=== PATIENT | female | born 1965 | race Caucasian/White ===

== ENCOUNTER 2023-12-09 14:03 | Emergency (ER) | payer OTHER, SELFPAY ==
[2023-12-09 14:20] VITALS: BP 175/87; PULSE 75; RESP 16; TEMP 36.6; O2SAT 97; BMI 35.0
--- NOTE | 2023-12-09 14:32 | ECG_ITS ---
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 Measurements Intervals [place] Rate: 77 P: 55 CO: 155 QRS: 68 QRSD: 68 T: 43 QT: 382 QTc: 433 Interpretive Statements SINUS RHYTHM No previous ECG available for comparison Electronically Signed On 12-09-2023 16:34:44 CDT by Carmine Estevez M.D. [email or web address]
--- NOTE | 2023-12-09 14:34 | CTR_ITS ---
PROCEDURE INFORMATION: Exam: CT Head Without Contrast Exam date and time: 12/09/2023 2:40 PM Age: 58 years old Clinical indication: Stroke-like symptoms; Headache; Left upper extremity numbness/paresthesia; Additional info: Symptoms of acute stroke TECHNIQUE: Imaging protocol: Computed tomography of the head without contrast. Radiation optimization: All CT scans at this facility use at least one of these dose optimization techniques: automated exposure control; mA and/or kV adjustment per patient size (includes targeted exams where dose is matched to clinical indication); or iterative reconstruction. Other technique: STROKE PROTOCOL was implemented. COMPARISON: No relevant prior studies available. RADIATION DOSE METRICS: Total DLP (mGy-cm): 1016 FINDINGS: Brain: There is a large poorly defined area of irregular low density involving the right parietal lobe region. A similar smaller area of low density involves the right frontal lobe. Both areas demonstrate abnormalities that involves the cortex as well as the subcortical white matter. A 1.5 cm old infarct involves the right basal ganglia anteriorly. 1 cm diameter old infarct involves the right internal capsule. No evidence of hemorrhage. Cerebral ventricles: No ventriculomegaly. No midline shift. Paranasal sinuses: Visualized sinuses are unremarkable. No fluid levels. Mastoid air cells: Visualized mastoid air cells are well aerated. Bones: Unremarkable. No acute fracture. Soft tissues: Unremarkable. CT/CT head thrombolytic [id number] IMPRESSION: 1. Poorly defined areas of low density in the right frontal lobe and parietal lobe suspicious for subacute infarct 2. Old lacunar infarcts involving the right basal ganglia and internal capsule ASSESSMENT: ASPECTS ([place] Stroke Program Early CT Score) is 6.
--- NOTE | 2023-12-09 14:42 | ED_ITS ---
HPI - Neuro Symptoms/Deficit 2 General: Chief Complaint: Neuro Symptoms/Deficit Stated Complaint: left side hand numb, hard time walking w/l side Time Seen by Provider: 12/09/23 14:33 History of Present Illness: 58-year-old female presents emergency ro om planing left-sided weakness and numbness that has already resolved. She had an episode of a headache earlier today and radiating to the right eye and then had left hand numbness and tingling felt little off balance all resolved by the time she arrived here. She is ambulating normally stroke alert was called. Initial NIH was 0 she denies urinary symptoms. All of her numbness and tingling had resolved. Associated symptoms: Deny chest pain Related Data Home Medications Medication Instructions Recorded Confirmed acetaminophen 325 mg tablet 650 mg PO QID PRN Pain 12/09/23 12/09/23 (Tylenol) [id number] 8 mg-folic 400 1 tab PO DAILY 12/09/23 12/09/23 mcg-K 50 mcg-lutein 300 mcg tablet (Multivitamin Women 50 Plus) Previous Rx's Medication Instructions Recorded aspirin 81 mg tablet,delayed 81 mg PO DAILY #30 tabs 12/09/23 release atorvastatin 40 mg tablet 40 mg PO DAILY #30 tabs 12/09/23 clopidogrel 75 mg tablet 75 mg PO DAILY #30 tabs 12/09/23 Allergies Allergy/AdvReac Type Severity Reaction Status Date / Time No Known Allergies Allergy Verified 12/09/23 14:25 Review of Systems 2 Const: Denies: fever(s) or chills Card: Denies: chest pain Resp: Denies: dyspnea GI: Denies: abdominal pain : Denies: dysuria, urinary frequency or urinary urgency Musc: Denies: neck pain or back pain Skin/Breast: Denies: rash NIH stroke score 2 NIHSS: Level Of Consciousness - 1a: 0 Level Of Consciousness Questions - 1b: Both Correct Level Of Consciousness Commands - 1c: Both Correct Best Gaze - 2: Normal Visual Jose - 3: No Visual Loss Facial Palsy - 4: N ormal Motor Arm Right - 5: No Drift Motor Arm Left - 5: No Drift Motor Leg Right - 6: No Drift Motor Leg Left - 6: No Drift Limb Ataxia - 7: A bsent Sensory - 8: Normal Best Language - 9: No Aphasia Dysarthia - 10: Normal Extinction And Inattention - 11: 0 Score: Total Score: 0 Physical Exam 2 Const: COMMON NORMALS: no acute distress GENERAL APPEARANCE: cooperative and comfortable ORIENTATION/CONSCIOUSNESS: Yes awake, Yes oriented to person, Yes oriented to place and Yes oriented to time HENMT: COMMON NORMALS: normocephalic, atraumatic and hearing grossly normal bilaterally HEAD & SCALP: normocephalic and atraumatic Resp: COMMON NORMALS: normal respiratory effort, No retractions, No use of accessory muscles and clear to auscultation bilaterally AUSCULTATION: clear to auscultation bilaterally Cardio: COMMON NORMALS: regular rate, regular rhythm and No murmurs present (Cardio) RATE: regular rate RHYTHM: regular rhythm GI: COMMON NORMALS: Soft to palpation and No hepatosplenomegaly present A USCULTATION: Yes normoactive bowel sounds PALPATION: Yes Soft to palpation, No Tenderness to palpation present (GI), No Guarding due to palpation present (GI) and Yes No hepatosplenomegaly present Extremity: COMMON NORMALS: normal to inspection, capillary refill normal, no clubbing, cyanosis or edema, no calf tenderness and no pedal edema Neuro: SENSORIUM/ORIENTATION: Yes oriented to person, Yes oriented to place and Yes oriented to time Skin: COMMON NORMALS: no rashes or lesions noted GENERAL SKIN EXAM: no rashes or lesions noted Course 2 Vital Signs: Vital signs: Vital Signs Temperature 97.9 F 12/09/23 14:20 Pulse Rate 74 12/09/23 16:47 Respiratory Rate 16 12/09/23 15:30 Blood Pressure 162/92 12/09/23 16:47 Pulse Oximetry 96 12/09/23 16:47 Oxygen Delivery Me thod Room Air 12/09/23 16:00 MDM - Neuro Symptoms/Deficit Medical Decision Making NIH is 0 repeat after workup was also negative. Ambulated in room without difficulty. Will discharge patient home Plavix aspirin and clopidogrel. Blood pressure is mildly elevated no intervention at this time recommend she follow-up with her primary care doctor to reevaluate. Return if any further problems. With reviewing chart to sign off and noted that on his CT report the second line of the first impression is listed as a possible subacute lesion. I had noted the old areas outlined in CT but had not noted the comment in the CT report about the possible subacute lesion. Reviewed with Dr. Vaz we will contact the patient to have her return to the emergency room for admission for further evaluation. Medical Records I reviewed the patient's medical records. Lab Data I reviewed the patient's lab results. 12/09/23 14:40 12/09/23 14:[address] 12/09/23 14:34 IMPRESSION: 1. Poorly defined areas of low density in the right frontal lobe and parietal lobe suspicious for subacute infarct 2. Old lacunar infarcts involving the right basal ganglia and internal capsule ASSESSMENT: ASPECTS ([place] Stroke Program Early CT Score) is 6. Laboratory Results WBC 11.81 10^3/uL (3.29-11.43) H 12/09/23 14:40 RBC 6.54 10^6/uL (3.85-5.65) H 12/09/23 14:40 Hgb 17.80 g/dL (11.27-16.99) H 12/09/23 14:40 Hct 55.9 % (36-47) H 12/09/23 14:40 MCV 85.5 fl (85-98) 12/09/23 14:40 MCH 27.2 pg (27-33) 12/09/23 14:40 MCHC 31.8 g/dL (30-55) 12/09/23 14:40 RDW 15.6 % (12.1-15.1) H 12/09/23 14:40 Plt Count 828 10^3/cmm (157-399) H 12/09/23 14:40 MPV 9.3 fL (7.4-10.4) 12/09/23 14:40 Neut % (Auto) 77.5 % 12/09/23 14:40 Lymph % (Auto) 11.3 % 12/09/23 14:40 Chambers % (Auto) 6.8 % 12/09/23 14:40 Eos % (Auto) 2.5 % 12/09/23 14:40 Baso % (Auto) 1.4 % 12/09/23 14:40 Neut # (Auto) 9.17 10^3/uL (1.8-7.7) H 12/09/23 14:40 Lymph # (Auto) 1.3 10^3/uL (0.8-4.8) 12/09/23 14:40 Chambers # (Auto) 0.8 10^3/uL (0.2-0.9) 12/09/23 14:40 Eos # (Auto) 0.3 10^3/uL (0.0-0.8) 12/09/23 14:40 Baso # (Auto) 0.2 10^3/uL (0.0-0.1) H 12/09/23 14:40 Nucleated RBC % (auto) 0 % 12/09/23 14:40 Nucleated RBCs # 0.0 /100WBC 12/09/23 14:40 PT 13.70 SECONDS (12.1-14.9) 12/09/23 14:40 INR 1.01 (0.8-1.2) 12/09/23 14:40 APTT 33.4 SECONDS (23.9-36.7) 12/09/23 14:40 Sodium 143 mmol/L (136-145) 12/09/23 14:40 Potassium 4.5 mmol/L (3.5-5.1) 12/09/23 14:40 Chloride 106 mmol/L (98-107) 12/09/23 14:40 Carbon Dioxide 27 mmol/L (22-29) 12/09/23 14:40 Anion Gap 14.5 (5-19) 12/09/23 14:40 BUN 17 mg/dL (6-20) 12/09/23 14:40 Creatinine 0.9 mg/dL (0.5-0.9) 12/09/23 14:40 GFR Calculation 64.5 mL/min (90-130) L 12/09/23 14:40 Glucose 91 mg/dL (65-115) 12/09/23 14:40 POC Glucose 88 mg/dL (70-110) 12/09/23 14:39 Calculated Osmolality 297 mOsm/kg (285-295) H 12/09/23 14:40 Calcium 9.4 mg/dL (8.5-10.5) 12/09/23 14:40 Total Bilirubin 0.4 mg/dL (0.15-1.2) 12/09/23 14:40 AST 32 U/L (0-32) 12/09/23 14:40 ALT 37 U/L (0-33) H 12/09/23 14:40 Alkaline Phosphatase 115 U/L (35-105) H 12/09/23 14:40 Total Protein 6.9 g/dL (6.6-8.7) 12/09/23 14:40 Albumin 4.0 g/dL (3.5-5.2) 12/09/23 14:40 Globulin 2.9 g/dL (1.3-4.6) 12/09/23 14:40 Urine Color Yellow (Yellow) 12/09/23 15:40 Urine Appearance Clear (CLEAR) 12/09/23 15:40 Urine pH 5.5 (5-7) 12/09/23 15:40 Ur Specific [place] 1.008 (1.005-1.030) 12/09/23 15:40 Urine Protein Negative (Negative) 12/09/23 15:40 Urine Glucose (UA) Negative (Normal) 12/09/23 15:40 Urine Ketones Negative (Negative) 12/09/23 15:40 Urine Blood Negative (Negative) 12/09/23 15:40 Urine Nitrate Negative (Negative) 12/09/23 15:40 Urine Bilirubin Negative (Negative) 12/09/23 15:40 Urine Urobilinogen 0.2 mg/dL (Negative) 12/09/23 15:40 Ur Leukocyte Esterase Negative (Negative) 12/09/23 15:40 Urine RBC 0-2 /hpf (0-2) 12/09/23 15:40 Urine WBC 0-5 /hpf (0-5) 12/09/23 15:40 Ur Squamous Epith Cells 0-5 /hpf (0-5) 12/09/23 15:40 Amorphous Sediment Not Reportable 12/09/23 15:40 Urine Bacteria None seen /hpf (NONE) 12/09/23 15:40 Hyaline Casts 0-4 /lpf H 12/09/23 15:40 Urine Opiates Screen Negative ng/mL (Negative) 12/09/23 15:40 Ur Barbiturates Screen Negative ng/mL (Negative) 12/09/23 15:40 Ur Phencyclidine Scrn Negative ng/mL (Negative) 12/09/23 15:40 Ur Amphetamines Screen Negative ng/mL (Negative) 12/09/23 15:40 U Benzodiazepines Scrn Negative ng/mL (Negative) 12/09/23 15:40 Urine Cocaine Screen Negative ng/mL (Negative) 12/09/23 15:40 U Marijuana (THC) Screen Negative ng/mL (Negative) 12/09/23 15:40 All radiology interpretation(s) finalized by discharge Discharge Plan Discharge Patient Disposition: Home Clinical Impression: Transient cerebral ischemia Condition: Stable Prescriptions: New aspirin 81 mg tablet,delayed release (DR/EC) 81 mg PO DAILY Qty: 30 0RF clopidogrel 75 mg tablet 75 mg PO DAILY Qty: 30 0RF atorvastatin 40 mg tablet 40 mg PO DAILY Qty: 30 0RF No Action Tylenol 325 mg Tablet 650 mg PO QID PRN (Reason: Pain) Multivitamin Women 50 Plus 8 mg iron-400 mcg-50 mcg Tablet 1 tab PO DAILY Discharge Orders: Discharge ED (Routine); Ordered 12/09/23 Ordered By: Antony Mandel Discharge Diet: Usual diet Discharge Activity: Increase activity as tolerated Patient Instructions: Opioid Safety, Pain Management, TIA Activity Restrictions/Additional Instructions: Thank you for choosing [facility] for your healthcare needs today. It is very important that you follow up as instructed or that you return to the Emergency Department should you have concerns or if your condition changes or worsens in any way. You were seen today for a TIA. Your symptoms had resolved her stroke score was 0. CT of your head was negative. Recommend that you start aspirin 81 mg daily and Plavix 75 mg daily as well as atorvastatin 40 mg daily. Case management make arrangements for follow-up with neurology as well as outpatient testing to further evaluate. Return if you have further problems. Coding Level of Care Code ED [employer] Attendant for Zoe Hudson
[2023-12-09 14:47] LABS: Basophils # 0.2 10^3/uL (0.0-0.1); Basophils % 1.4 %; Eosinophils # 0.3 10^3/uL (0.0-0.8); Eosinophils % 2.5 %; Hematocrit 55.9 % (36-47); Lymphocytes # 1.3 10^3/uL (0.8-4.8); Lymphocytes % 11.3 %; Mean Corpuscular HGB Conc 31.8 g/dL (30-55); Mean Corpuscular Hemoglobin 27.2 pg (27-33); Mean Corpuscular Volume 85.5 fl (85-98); Mean Platelet Volume 9.3 fL (7.4-10.4); Monocytes # 0.8 10^3/uL (0.2-0.9); Monocytes % 6.8 %; Neutrophils # 9.17 10^3/uL (1.8-7.7); Neutrophils % 77.5 %; Nucleated Red Blood Cells % 0 %; Platelet Count 828 10^3/cmm (157-399); Red Blood Count 6.54 10^6/uL (3.85-5.65); Red Cell Distribution Width 15.6 % (12.1-15.1); White Blood Count 11.81 10^3/uL (3.29-11.43)
[2023-12-09 15:07] LABS: INR 1.01 (0.8-1.2)
[2023-12-09 15:08] LABS: Partial Thromboplastin Time 33.4 SECONDS (23.9-36.7)
[2023-12-09 15:12] LABS: Alanine Aminotransferase 37 U/L (0-33); Alkaline Phosphatase 115 U/L (35-105); Anion Gap 14.5 (5-19); Aspartate Amino Transferase 32 U/L (0-32); Blood Urea Nitrogen 17 mg/dL (6-20); Calcium 9.4 mg/dL (8.5-10.5); Carbon Dioxide 27 mmol/L (22-29); Chloride 106 mmol/L (98-107); Creatinine Clr Calc Pharmacy 81.6028; Globulin 2.9 g/dL (1.3-4.6); Glomerular Filtration Rate 64.5 mL/min (90-130); Glucose 91 mg/dL (65-115); Osmolality Calculated 297 mOsm/kg (285-295); Potassium 4.5 mmol/L (3.5-5.1); Sodium 143 mmol/L (136-145); Total Bilirubin 0.4 mg/dL (0.15-1.2); Total Protein 6.9 g/dL (6.6-8.7)
[2023-12-09 15:24] VITALS: BP 143/95; PULSE 74; RESP 16; O2SAT 93
[2023-12-09 15:30] VITALS: BP 166/97; PULSE 72; RESP 16; O2SAT 96
[2023-12-09 16:00] VITALS: BP 170/90; PULSE 74; O2SAT 94
[2023-12-09 16:07] LABS: Bilirubin Urine Negative (Negative); Blood Urine Negative (Negative); Glucose Urine UA Negative (Normal); Ketones Urine Negative (Negative); Leukocyte Esterase Urine Negative (Negative); Nitrate Urine Negative (Negative); Protein Urine Negative (Negative); Specific Gravity, Urine 1.008 (1.005-1.030); Urine Appearance Clear (CLEAR); Urine Color Yellow (Yellow); Urobilinogen Urine 0.2 mg/dL (Negative); pH Urine 5.5 (5-7)
[2023-12-09 16:13] LABS: Add Urine Microscopic? YES; Bacteria Urine None Seen /hpf; Hyaline Casts Urine 0-4 /lpf; RBC Urine 0-2 /hpf (0-2); Squamous Epithelial Cell Urine 0-5 /hpf (0-5); WBC Urine 0-5 /hpf (0-5)
[2023-12-09 16:15] LABS: Amphetamines Screen Urine Negative (Negative); Barbiturates Screen Urine Negative (Negative); Benzodiazepines Screen Urine Negative (Negative); Cocaine Screen Urine Negative (Negative); Opiate Screen Urine Negative (Negative); PCP Screen Urine Negative (Negative); THC Screen Urine Negative (Negative)
[2023-12-09 16:47] VITALS: BP 162/92; PULSE 74; O2SAT 96
[2023-12-09 17:23] LABS: Glucose Point of Care 88 mg/dL (70-110)
== END 2023-12-09 16:48 | disposition home or self-care (01) ==
PROVIDERS: Emergency Provider Family Medicine
DX: G45.9 Transient cerebral ischemic attack, unspecified (principal)
CPT/HCPCS: 36416; 70450; 80053; 80306; 81001; 82962; 85025; 85610; 85730; 93005; 99284

== ENCOUNTER 2023-12-09 17:48 | Inpatient (IN) | payer OTHER, SELFPAY ==
[2023-12-09 17:56] VITALS: BP 137/72; PULSE 102; RESP 16; O2SAT 99; BMI 34.8
--- NOTE | 2023-12-09 18:00 | PC.NURSE ---
spoke with duc elias regarding calling code stroke for patient. she instructed since dr swan called patient back to put her in room 10 and then staff would go from there. no code stroke called at this time.
--- NOTE | 2023-12-09 18:10 | CTR_ITS ---
PROCEDURE INFORMATION: Exam: CTA Head With Contrast, Arteriography Exam date and time: 12/09/2023 6:48 PM Age: 58 years old Clinical indication: Other: Subacute CVA TECHNIQUE: Imaging protocol: Computed tomographic angiography of the head with contrast. Exam focused on the arteries. 3D rendering (Not supervised by radiologist): MIP and/or 3D reconstructed images were created by the technologist. Radiation optimization: All CT scans at this facility use at least one of these dose optimization techniques: automated exposure control; mA and/or kV adjustment per patient size (includes targeted exams where dose is matched to clinical indication); or iterative reconstruction. Contrast material: OMNI 350; Contrast volume: 75 ml; Contrast route: INTRAVENOUS (IV); COMPARISON: CT head thrombolytic [id number] 12/09/2023 2:40 PM RADIATION DOSE METRICS: Total DLP (mGy-cm): 492 FINDINGS: ANTERIOR CIRCULATION: Right internal carotid artery: Irregular xxeh-ih-nattjswa narrowing is seen involving the proximal right cavernous carotid artery. Irregularity is also seen involving the right carotid terminus with mild narrowing. Findings may be related to atherosclerotic plaque versus recanalized thrombus. Right middle cerebral artery: No occlusion or significant stenosis. No aneurysm. Right anterior cerebral artery: Filling defect suggested involving a diminutive right A1 branch concerning for thrombus. Left internal carotid artery: No significant stenosis or aneurysm is seen involving the petrous, cavernous, or supraclinoid left internal caroid artery. Left middle cerebral artery: No occlusion or significant stenosis. No aneurysm. Left anterior cerebral artery: No occlusion or significant stenosis. No aneurysm. POSTERIOR CIRCULATION: Right vertebral artery: Intradural right vertebral artery demonstrates no occlusion or significant stenosis. No aneurysm. Left vertebral artery: Intradural left vertebral artery demonstrates no occlusion or significant stenosis. No aneurysm. Basilar artery: No occlusion or significant stenosis. No aneurysm. Right posterior cerebral artery: No occlusion or significant stenosis. No aneurysm. The right posterior communicating artery is present. Left posterior cerebral artery: No occlusion or significant stenosis. No aneurysm. The left posterior communicating artery is present. PROCEDURE INFORMATION: Exam: CTA Neck With Contrast Exam date and time: 12/09/2023 6:48 PM Age: 58 years old Clinical indication: Other: Subacute CVA TECHNIQUE: Imaging protocol: Computed tomographic angiography of the neck with contrast. Exam focused on the cervical segments of the vasculature. 3D rendering (Not supervised by radiologist): MIP and/or 3D reconstructed images were created by the technologist. Radiation optimization: All CT scans at this facility use at least one of these dose optimization techniques: automated exposure control; mA and/or kV adjustment per patient size (includes targeted exams where dose is matched to clinical indication); or iterative reconstruction. Contrast material: OMNI 350; Contrast volume: 75 ml; Contrast route: INTRAVENOUS (IV); COMPARISON: CT head thrombolytic [id number] 12/09/2023 2:40 PM RADIATION DOSE METRICS: Total DLP (mGy-cm): 492 FINDINGS: Right common carotid artery: No stenosis. No dissection or occlusion. Right internal carotid artery: No significant stenosis seen by NASCET criteria. No dissection or occlusion. Right external carotid artery: No occlusion or stenosis of the origin. Left common carotid artery: No stenosis. No dissection or occlusion. Left internal carotid artery: No significant stenosis seen by NASCET criteria. No dissection or occlusion. Left external carotid artery: No occlusion or stenosis of the origin. Right vertebral artery: No cervical vertebral artery stenosis. No dissection or occlusion. Left vertebral artery: No cervical vertebral artery stenosis. Linear defect is seen through the left vertebral artery at the V2/V3 junction which may be artifactual as there is an abundant amount of hardware artifact from dental amalgam seen at this level. Dissection however cannot be entirely excluded. The left vertebral artery is the dominant vertebral artery. Soft tissues: Right thyroid nodule measuring up to 1 cm in size. The thyroid gland would be better assessed with thyroid ultrasound if clinically warranted. Bones/joints: No acute bony abnormality. CT/CT angio headneck* [id number] IMPRESSION: 1. Filling defect suggested involving a diminutive right A1 branch concerning for thrombus. 2. Irregular sjzc-bv-marqqvcj narrowing is seen involving the proximal right cavernous carotid artery. Irregularity is also seen involving the right carotid terminus with mild narrowing. Findings may be related to atherosclerotic plaque versus recanalized thrombus. IMPRESSION: Linear defect is seen through the left vertebral artery at the V2/V3 junction which may be artifactual as there is an abundant amount of hardware artifact from dental amalgam seen at this level. Dissection however cannot be entirely excluded. Findings may be further assessed with MR angiogram. COMMENTS: Consistent with the [employer]'s Incidental Findings Committee white paper (J Am Charu Radiol 2015): In patients aged 35 years and older with an incidental thyroid nodule equal to or greater than 1.[address], MRI or extrathyroidal US, further evaluation with dedicated thyroid US is recommended for patients with normal life expectancy and without comorbidities. For smaller nodules without suspicious features, no further evaluation or follow up is recommended. REFERENCES: NASCET CRITERIA. The degree of stenosis in the cervical segment of the internal carotid artery is based on NASCET criteria. Normal is no stenosis. Mild is less than 50% stenosis. Moderate is 50-69% stenosis. Severe is 70% to 99% stenosis. Total occlusion is no detectable patent lumen.
--- NOTE | 2023-12-09 18:25 | ED_ITS ---
HPI - Neuro Symptoms/Deficit 2 General: Chief Complaint: Neuro Symptoms/Deficit Stated Complaint: neuro/symptoms Time Seen by Provider: 12/09/23 17:55 History of Present Illness: 58-year-old female presents emergency ro om she was seen earlier with some left- sided numbness tingling that had resolved. Her stroke score was essentially 0 and we rechecked her after the CT. CT head showed some old infarcts and there was a comment in the report about a subacute infarct. I had not noticed the comment on the subacute infarct noticed that after she had been discharged and we contacted the patient and asked her to come back. On return she states she had another brief episode like she had had that initially brought her in. If it completely resolved she states she felt fine on repeat exam she has not had any further symptoms. She was noted to be polycythemic on her initial labs. She does not smoke she does not have COPD and she does not have sleep apnea. Contact Dr. Vaz and asked her to come and see the patient. Associated symptoms: Deny chest pain Related Data Home Medications Medication Instructions Recorded Confirmed acetaminophen 500 mg tablet 1,000 mg PO Q6H PRN Pain 12/09/23 12/09/23 icxzlewt-exek-vkdj 8 mg-folic 400 1 tab PO DAILY 12/09/23 12/09/23 mcg-K 50 mcg-lutein 300 mcg tablet (Multivitamin Women 50 Plus) Previous Rx's Medication Instructions Recorded aspirin 81 mg tablet,delayed 81 mg PO DAILY #30 tabs 12/09/23 release atorvastatin 40 mg tablet 40 mg PO DAILY #30 tabs 12/09/23 clopidogrel 75 mg tablet 75 mg PO DAILY #30 tabs 12/09/23 Allergies Allergy/AdvReac Type Severity Reaction Status Date / Time No Known Allergies Allergy Verified 12/09/23 14:25 Review of Systems 2 Const: Denies: fever(s) or chills Card: Denies: chest pain Resp: Denies: dyspnea GI: Denies: abdominal pain : Denies: dysuria, urinary frequency or urinary urgency Musc: Denies: neck pain or back pain Skin/Breast: Denies: rash PFSH ED 2 PFSH: Medical History No significant past medical history Social History Smoking and tobacco/nicotine status: never used tobacco/nicotine Alcohol intake: never Substance/Drug Use: never NIH stroke score 2 NIHSS: Level Of Consciousness - 1a: 0 Level Of Consciousness Questions - 1b: Both Correct Level Of Consciousness Commands - 1c: Both Correct Best Gaze - 2: Normal Visual Jose - 3: No Visual Loss Facial Palsy - 4: N ormal Motor Arm Right - 5: No Drift Motor Arm Left - 5: Drift (Pronation) Motor Leg Right - 6: No Drift Motor Leg Left - 6: No Drift Limb Ataxia - 7: Absent Sensory - 8: Normal Best Language - 9: No Aphasia Dysarthia - 10: Normal Extinction And Inattention - 11: 1 (Intermittent) Score: Total Score: 2 Physical Exam 2 Const: COMMON NORMALS: no acute distress GENERAL APPEARANCE: cooperative and comfortable ORIENTATION/CONSCIOUSNESS: Yes awake, Yes oriented to person, Yes oriented to place and Yes oriented to time HENMT: COMMON NORMALS: normocephalic, atraumatic and hearing grossly normal bilaterally HEAD & SCALP: normocephalic and atraumatic Resp: COMMON NORMALS: normal respiratory effort, No retractions, No use of accessory muscles and clear to auscultation bilaterally AUSCULTATION: clear to auscultation bilaterally Cardio: COMMON NORMALS: regular rate, regular rhythm and No murmurs present (Cardio) RATE: regular rate RHYTHM: regular rhythm GI: COMMON NORMALS: Soft to palpation and No hepatosplenomegaly present A USCULTATION: Yes normoactive bowel sounds PALPATION: Yes Soft to palpation, No Tenderness to palpation present (GI), No Guarding due to palpation present (GI) and Yes No hepatosplenomegaly present Extremity: COMMON NORMALS: normal to inspection, capillary refill normal, no clubbing, cyanosis or edema, no calf tenderness and no pedal edema Neuro: SENSORIUM/ORIENTATION: Yes oriented to person, Yes oriented to place and Yes oriented to time OTHER: Neuroexam. She does have some extinction as well as pronation with arm extension. Romberg negative Gait normal patient is able to walk turn and return back to the exam table without any difficulty or loss of balance or ataxia Skin: COMMON NORMALS: no rashes or lesions noted GENERAL SKIN EXAM: no rashes or lesions noted Course 2 Vital Signs: Vital signs: Vital Signs Temperature 98.3 F 12/10/23 04:00 Pulse Rate 68 12/10/23 04:00 Respiratory Rate 17 12/10/23 04:00 Blood Pressure 136/84 12/10/23 04:00 Pulse Oximetry 95 12/10/23 04:00 Oxygen Delivery Me thod Room Air 12/10/23 04:00 MDM - Neuro Symptoms/Deficit Medical Decision Making Repeat exam done with Dr. Vaz. She does feel that there is a subacute stroke. Will admit the patient. Further evaluation includes CTA of the head and neck rhythm monitoring and echocardiogram. CTA pending at time of admission I discussed with Dr. Nath. Orders written for admission. Medical Records I reviewed the patient's medical records. Lab Data I reviewed the patient's lab results. 12/10/23 04:15 12/10/23 04:15 Radiology Impressions Head/Neck CTA 12/09/23 18:10 IMPRESSION: 1. Filling defect suggested involving a diminutive right A1 branch concerning for thrombus. 2. Irregular yhik-ln-kkretdvv narrowing is seen involving the proximal right cavernous carotid artery. Irregularity is also seen involving the right carotid terminus with mild narrowing. Findings may be related to atherosclerotic plaque versus recanalized thrombus. IMPRESSION: Linear defect is seen through the left vertebral artery at the V2/V3 junction which may be artifactual as there is an abundant amount of hardware artifact from dental amalgam seen at this level. Dissection however cannot be entirely excluded. Findings may be further assessed with MR angiogram. COMMENTS: Consistent with the [employer]'s Incidental Findings Committee white paper (J Am Charu Radiol 2015): In patients aged 35 years and older with an incidental thyroid nodule equal to or greater than 1.[address], MRI or extrathyroidal US, further evaluation with dedicated thyroid US is recommended for patients with normal life expectancy and without comorbidities. For smaller nodules without suspicious features, no further evaluation or follow up is recommended. REFERENCES: NASCET CRITERIA. The degree of stenosis in the cervical segment of the internal carotid artery is based on NASCET criteria. Normal is no stenosis. Mild is less than 50% stenosis. Moderate is 50-69% stenosis. Severe is 70% to 99% stenosis. Total occlusion is no detectable patent lumen. ADDENDUM: 12/09/231943 ADDENDUM: THIS REPORT CONTAINS FINDINGS THAT MAY BE CRITICAL TO PATIENT CARE. The findings were verbally communicated via telephone conference with Dr. Angulo at 7:43 PM CDT on 12/09/2023. The findings were acknowledged and understood. All radiology interpretation(s) finalized by discharge (CTA head and neck pending at time of admission hospitalist aware) Discharge Plan Discharge Patient Disposition: Admitted As Inpatient Admit Provider: Dayne Palm Clinical Impression: CVA (cerebral vascular accident), Polycythemia Condition: Stable Coding Level of Care Code ED Quality Control Systems Manager for [employer]
[2023-12-09] MEDS: iohexol 350 mg/mL 500 mL Btl (per mL) IV (19:01)
[2023-12-09] MEDS: acetaminophen 325 mg Tablet 1000 MG PO (19:57)
[2023-12-09 20:21] VITALS: BP 164/101; PULSE 81; RESP 16; O2SAT 94
--- NOTE | 2023-12-09 20:21 | PM.HP ---
Providers/Chief Complaint Admitting Physician: Dayne Palm MD Chief Complaint: neuro/symptoms History of Present Illness 58-year-old lady without significant past medical history came into the emergency room earlier today with left-sided numbness, weakness in her extremities, also was noting right-sided headache and right visual field disturbance which she describes as flower like . She works from home and had a stressful 4 days working long days in front of the computer and feels likely did not get adequate hydration. She denies any palpitations or being aware of having hypertension. Her symptoms resolved by the time of assessment in the ER with NIH stroke scale coming down to [address] of the head was obtained with finding of old lacunar infarcts involving right basal ganglia and internal capsule as well as poorly defined areas of low density in the right frontal lobe and parietal lobe suspicious for subacute infarct. She was started on aspirin, Plavix, atorvastatin and discharged home for follow-up reassessment for this and for concern of possible underlying hypertension. She had recently moved here to the area and had not had a chance to establish with a primary provider. 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 CT images were reviewed with the neurologist, with findings concerning for a more extensive stroke she was called back for additional assessment and management in the hospital. She also reported that she had a recurrence of symptoms at home. These have again resolved with NIH score of 0 in the ER. She has been assessed by neurologist. CTA was ordered. Review of Systems Const: Denies: fever(s), chills, body aches or malaise ENMT: Denies: throat pain Card: Denies: chest pain, edema, pre-syncope or dyspnea on exertion Resp: Denies: dyspnea, productive cough, change in phlegm color or hemoptysis GI: Denies: abdominal pain, nausea, vomiting, diarrhea, constipation, hematochezia or melena : Denies: flank pain, urinary frequency or hematuria Musc: Denies: back pain, joint swelling or joint redness Skin/Breast: Denies: rash or new lesions Neuro: Reports: headache(s), numbness in extremities and weakness in extremities; Denies: confusion Medications/Allergies Home Medications Medication Instructions Recorded Confirmed Last Taken Type acetaminophen 500 mg tablet 1,000 mg PO Q6H PRN Pain 12/09/23 12/09/23 12/09/23 08:00 History aspirin 81 mg tablet,delayed 81 mg PO DAILY #30 tabs 12/09/23 12/09/23 Unknown Rx release atorvastatin 40 mg tablet 40 mg PO DAILY #30 tabs 12/09/23 12/09/23 Unknown Rx clopidogrel 75 mg tablet 75 mg PO DAILY #30 tabs 12/09/23 12/09/23 Unknown Rx oikgkjes-amuy-zyrb 8 mg-folic 400 1 tab PO DAILY 12/09/23 12/09/23 12/08/23 History mcg-K 50 mcg-lutein 300 mcg tablet (Multivitamin Women 50 Plus) Allergies Allergy/AdvReac Type Severity Reaction Status Date / Time No Known Allergies Allergy Verified 12/09/23 14:25 PFSH Acute PFSH: Medical History No significant past medical history Social History Smoking and tobacco/nicotine status: never used tobacco/nicotine Alcohol intake: never Substance/Drug Use: never Vitals/I&O/Wt Last Vital Signs Pulse 102 H 12/09/23 17:56 Resp 16 12/09/23 17:56 BP 137/72 12/09/23 17:56 Pulse Ox 99 12/09/23 17:56 O2 Del Method Room Air 12/09/23 17:56 Weight last 48 hrs Weight 97.976 kg Physical Exam Const: COMMON NORMALS: patient oriented x3 and alert GENERAL APPEARANCE: cooperative ORIENTATION/CONSCIOUSNESS: Yes awake HENMT: COMMON NORMALS: oropharynx normal Neck/C-Spine: COMMON NORMALS: no JVD Resp: COMMON NORMALS: normal respiratory effort and clear to auscultation bilaterally AUSCULTATION: clear to auscultation bilaterally Cardio: COMMON NORMALS: no JVD, regular rhythm, S1 normal heart sound present, S2 normal heart sound present and No murmurs present (Cardio) RHYTHM: regular rhythm HEART SOUNDS: S1 normal heart sound present and S2 normal heart sound present GI: COMMON NORMALS: Normal to inspection, nondistended, normoactive bowel sounds present, Soft to palpation and non-tender PALPATION: Yes Soft to palpation Extremity: COMMON NORMALS: no joint enlargement and no pedal edema Neuro: COMMON NORMALS: patient oriented x3 and moves all extremities SENSORIUM/ORIENTATION: Yes alert OTHER: No trouble following directions, no detectable slurred speech or aphasia. No difficulty with horizontal tracking. Visual arechiga full to confrontation, no visual extinction. FNF without difficulty. Sensory exam symmetrical to light touch on upper and lower extremities without sensory extinction. No upper or lower extremity drift. Skin: COMMON NORMALS: no rashes or lesions noted GENERAL SKIN EXAM: no rashes or lesions noted A&P Assessment and plan (1) CVA (cerebral vascular accident): Fluctuating symptoms with initial resolution by transient recurrence at home, with left side numbness, weakness, trouble speaking. Finding suspicious of subacute CVA noted on CT head involving right frontal and parietal lobe with additional old lacunar infarcts involving right basal ganglia and internal capsule. Reviewed vitals, CBC, INR, CMP, UA, UDS, EKG, CT head, ER provider note, discussed with daytime hospitalist signing out to case. Reviewed also and discussed CTA findings with neurologist who is also reviewed the imaging, at current time no indication for endovascular intervention. Follow-up for any recurrence of symptoms, notify neurology in case of changes. Concern for embolic etiology of CVA. She does additionally appear to have uncontrolled hypertension. Additional assessment with competency evaluated nurse aide for atrial fibrillation and further would consider setting up screw down at discharge. Assess echocardiogram bubble study. As per discussion with neurologist refer for outpatient MRI together with neurology follow-up (1 week). Continue aspirin, Plavix for 21 days, statin. Monitor blood pressure. As per discussion with neurology also left vertebral artery findings appear artifactual on neurology assessment, permissive hypertension at current time, obtaining an MRA study and timing of it is also considered by the neurologist, but reporting no need for urgent study at the moment.. Following permissive hypertension will need to continue optimization of blood pressure control, target blood pressure 120/80, will need frequent checks with concern for episodic hypertension. Avoid dehydration with her having work 4 long days in a row sitting down at the computer, will need lifestyle modification. Suspect component of dehydration contributing to the polycythemia with mild elevation across all cell lines, gentle IV hydration with 30 mL/h LR, monitor for risk of worsening hypertension, fluid overload. Additional follow-up with hematology was being arranged at prior discharge, please confirm that it is in place for further assessment of possible polycythemia as well as assessment for hypercoagulability. Repeat blood counts in the morning She had concerns about statins and dementia, discussed with her as study assessing this has not revealed a link between statin and cognitive decline, however, made aware of father possible adverse effects with statin, antiplatelets. Assess lipid profile, A1c. Additional assessment by PT, OT, ST. She also moved to the area recently and does not have a PCP, case management consultation to assist with establishing care. (2) Polycythemia: Suspect component of dehydration contributing to the polycythemia with mild elevation across all cell lines, gentle IV hydration with 30 mL/h LR, monitor for risk of worsening hypertension, fluid overload. Bedspread Inspector on avoiding dehydration. Additional follow-up with hematology was being arranged at prior discharge, please confirm that it is in place for further assessment of possible polycythemia as well as assessment for hypercoagulability. Per discussion with neurologist hypercoagulable studies were ordered by ER physician at initial discharge, please confirm prior to DC home. Repeat blood counts in the morning (3) Carotid artery disease: CTA finding of carotid artery with irregular mild to moderate narrowing seen involving proximal right cavernous carotid artery. Irregularity is also seen involving the right carotid terminus with mild narrowing finding may be related to atherosclerotic plaque versus recanalized thrombus. Continue additional assessment as above for possible embolic source. Long-term optimization of risk factors of atherosclerosis as above and outpatient follow-up of coronary disease. (4) HTN (hypertension): Permissive hypertension at current time. Long-term she will need management of hypertension, target blood pressure 120/80 long-term, can initiate antihypertensives 24 hours after her stroke tomorrow afternoon to gradually bring down blood pressures toward target. Plan Linear defect through the vertebral artery at V2/V3 junction on CTA. May be artifactual as there is an abundant amount of hardware artifact from dental amalgam seen at this level. Dissection however cannot be entirely excluded. On review by neurologist likely artifactual but neurologist considering MRI study and timing as well but reporting no need for urgent study. Attestations Medical Necessity Statement*: Admission of over 2 midnights anticipated for assessment and management of CVA of anterior circulation, concern for embolic etiology, permissive hypertension, uncontrolled previously undiagnosed hypertension. Diagnoses CVA (cerebral vascular accident) I63.9 Polycythemia D75.1 Carotid artery disease I77.9 HTN (hypertension) I10
[2023-12-09 20:36] VITALS: BP 164/101; PULSE 81; O2SAT 94
[2023-12-09 21:56] VITALS: BP 149/87; PULSE 69; RESP 18; TEMP 36.7; O2SAT 98
--- NOTE | 2023-12-09 22:00 | USCV_ITS ---
Antonia Steel Age: 58 Gender: F : 1965 Exam Date: 12/09/2023 22:12 Ordering Phys: Hussain Phillips MD Technologist: ISAAK Exam Location: [facility] – [place] Indication: LEFT hemiparesis cva. BUBBLE STUDY BP: 164 / 101 HR: 60 Rhythm: Sinus Technical Quality: Adequate MEASUREMENTS (Male / Female) Normal Values 2D ECHO LV Diastolic Diameter PLAX 4.2 cm 4.2 - 5.9 / 3.9 - 5.3 cm IVS Diastolic Thickness 1.2 cm 0.6 - 1.0 / 0.6 - 0.9 cm IVS Systolic Thickness 1.6 cm LVPW Diastolic Thickness 1.1 cm 0.6 - 1.0 / 0.6 - 0.9 cm LVPW Systolic Thickness 1.5 cm LVOT Diameter 1.5 cm LV Ejection Fraction 2D Teich 70.0 % LV Ejection Fraction MOD 4C 66.2 % LV Ejection Fraction MOD 2C 61.9 % LV Ejection Fraction 2C AL 62.4 % LA Diameter 2.6 cm LA Sys Volume AL 49.3 cm cubed LA Sys Volume Index AL 22.4 cm cubed/m squared Aorta at Sinotubular Diameter 3.3 cm IVC Diameter 1.2 cm M-MODE LA Ao Ratio MM 1.0 AV Cusp Separation MM 1.6 cm DOPPLER AV Peak Velocity 110.0 cm/s LVOT Peak Velocity 102.0 cm/s AV Area Cont Eq vti 1.8 cm squared AV Area Cont Eq pk 1.7 cm squared MV Peak Velocity 83.0 cm/s MV Area PHT 3.1 cm squared Mitral E to A Ratio 0.8 TR Peak Velocity 203.0 cm/s TR Peak Gradient 16.5 mmHg TV Peak E Velocity 43.0 cm/s Right Atrial Pressure 3.0 mmHg Pulmonary Artery Systolic Pressu 19.5 mmHg PV Peak Velocity 75.0 cm/s FINDINGS Left Ventricle Normal LV size and ejection fraction of 62%. No gross wall motion abnormalities.mild left ventricular hypertrophy. Grade I/IV diastolic dysfunction (abnormal relaxation filling pattern), normal to mildly elevated filling pressures. Right Ventricle The right ventricle is normal in size and function. Right Atrium Normal right atrial size. Saline contrast injection revealed no evidence of any [id number]-xm-coeq shunt Left Atrium Mildly increased left atrial size. Mitral Valve Trace mitral valve regurgitation. Aortic Valve No gross abnormalities noted Tricuspid Valve Trace tricuspid valve regurgitation. Pulmonic Valve No gross abnormalities noted Pericardium Normal pericardium without effusion. Aorta Normal ascending aorta dimension. IVC Normal inferior vena cava. CONCLUSIONS Normal LV size and ejection fraction of 62%. No gross wall motion abnormalities.mild left ventricular hypertrophy. Grade I/IV diastolic dysfunction (abnormal relaxation filling pattern), normal to mildly elevated filling pressures. Mildly increased left atrial size. Normal right atrial size. Saline contrast injection revealed no evidence of any right-to- left shunt. Trace of mitral and tricuspid regurgitation Possibly normal PA pressure There is no pericardial effusion. There are no intracardiac masses. No similar previous studies are available for comparison Dr Mary Ellen Don MD FAC (Electronically Signed) Final Date: 10 December 2023 18:52 S
[2023-12-09 22:10] VITALS: BP 149/87; PULSE 69; RESP 18; TEMP 36.7; O2SAT 98
[2023-12-09] MEDS: aspirin 81 mg EC Tablet 162 MG PO (22:48)
[2023-12-09] MEDS: lactated ringers 1,000 ML 30 ML IV (22:49)
[2023-12-09] MEDS: atorvastatin 40 mg Tablet PO (22:49)
[2023-12-09] MEDS: clopidogrel 75 mg Tablet PO (22:49)
[2023-12-09] MEDS: enoxaparin 40 mg/0.4 mL Syringe SUBCUT (22:50)
[2023-12-10] VITALS (11 sets, daily range): BP systolic 118–149; BP diastolic 76–94; PULSE 59–80; RESP 16–18; TEMP 36.5–37; O2SAT 94–98
[2023-12-10 00:08] LABS: Covid PCR NEGATIVE (Negative); Influenza A NEGATIVE (Negative); Influenza B NEGATIVE (Negative); Respiratory Syncytial Virus Ce NEGATIVE (Negative)
[2023-12-10 05:08] LABS: Basophils # 0.1 10^3/uL (0.0-0.1); Basophils % 1.1 %; Eosinophils # 0.3 10^3/uL (0.0-0.8); Eosinophils % 3.2 %; Hematocrit 55.8 % (36-47); Lymphocytes # 1.6 10^3/uL (0.8-4.8); Lymphocytes % 14.9 %; Mean Corpuscular HGB Conc 31.7 g/dL (30-55); Mean Corpuscular Hemoglobin 26.9 pg (27-33); Mean Corpuscular Volume 84.9 fl (85-98); Mean Platelet Volume 9.3 fL (7.4-10.4); Monocytes # 0.8 10^3/uL (0.2-0.9); Monocytes % 7.5 %; Neutrophils # 7.58 10^3/uL (1.8-7.7); Neutrophils % 72.5 %; Nucleated Red Blood Cells % 0 %; Platelet Count 796 10^3/cmm (157-399); Red Blood Count 6.57 10^6/uL (3.85-5.65); Red Cell Distribution Width 15.8 % (12.1-15.1); White Blood Count 10.45 10^3/uL (3.29-11.43)
[2023-12-10 05:24] LABS: Blood Urea Nitrogen 13 mg/dL (6-20); Calcium 9.3 mg/dL (8.5-10.5); Carbon Dioxide 22 mmol/L (22-29); Chloride 104 mmol/L (98-107); Glomerular Filtration Rate 73.9 mL/min (90-130); Glucose 92 mg/dL (65-115); Magnesium 2.4 mg/dL (1.7-2.3); Osmolality Calculated 284 mOsm/kg (285-295); Sodium 137 mmol/L (136-145)
[2023-12-10 05:25] LABS: Anion Gap 14.8 (5-19); Chol HDL Ratio 3.81 mg/dL (0.0-4.40); Cholesterol 202 mg/dL (0-200); HDL Cholesterol 53 mg/dL (60-100); LDL Cholesterol Calculated 121 mg/dL (50-129); LDL HDL Ratio 2.28 RATIO (0.00-3.22); Potassium 3.8 mmol/L (3.5-5.1); Triglycerides 138 mg/dL (0-150)
[2023-12-10 05:34] LABS: Estmated Average Glucose 108; Hemoglobin A1C 5.4 % (4.0-6.0)
[2023-12-10] MEDS: aspirin 81 mg EC Tablet 162 MG PO (09:17)
[2023-12-10] MEDS: clopidogrel 75 mg Tablet PO (09:17)
--- NOTE | 2023-12-10 09:49 | PC.CHAP ---
Pastoral Care Encounter/Spiritual Assessment Type of Contact [] Declined medicare coordinator visit [] Patient/Family/Request visit [] Outpatient visit [] Follow-up visit [] Physician referral [] Code/Alert [x] Routine visit [] Staff referral [] Actively dying [x] Patient sleeping [] Family support [] [] Out of room [] Palliative care [] [] Receiving care in room [] Pre-surgical visit [] Trauma [] Long length of stay [] ICU visit [] Other: Relational/Emotional Strength [] Patient feels connected with others/family/visitors/staff [] Distress [] Loneliness/isolation [] Abandonment Spirituality of Patient [] Person of Alana [] Attends Jain of their Alana [] Believes in Prayer [] Reads Bible or Spiritism materials [] There are Spiritual issues to be addressed Application Support Manager Interventions [] Prayer [] Active listening [] Non-anxious presence [] Spiritual/emotional support [] Crisis/trauma care [] Spiritual counseling [] Bereavement support [] Provided bereavement packet [] Provided Bible/devotional materials [] Provided toy/stuffed animal, coloring book to patient or family member [] Provided Communion [] Anointing/[place] [] Salvation [] Completed spiritual assessment [] Other: Impact on Illness or Injury [] Angry [] Fearful [] Anxious [] Often cries [] Exhaustion [] Unable to work [] Unable to attend pentecostalism [] Unable to walk/stand [] Unable to read [] Unable to drive [] Unable to eat/drink [] Unable to sleep [] Unable to be with family [] Patient intubated [] Other: Summary Time spent with patient
--- NOTE | 2023-12-10 10:11 | P.CONIM_ITS ---
Providers/Reason For Consult 2 Consulting Physician/Specialty*: dr. Swan Reason for Consult*: acute stroke Requesting Physician: dr. swan Attending Physician: Dayne Palm MD History of Present Illness History of Present Illness This is a healthy 58-year-old woman who came to the emergency department with transient left-sided numbness. By the time she arrived her stroke scale score was 0, she was ambulating normally and had clear speech. At first glance her CT was unremarkable and she was sent home on aspirin and Plavix. Dr. Swan called me because as he was doing his note he realized the CAT scan was not normal and I reviewed the CAT scan with him and asked that he bring the patient back and have her admitted for stroke workup as she has multiple strokes in multiple vascular distributions and an acute stroke either in right middle cerebral artery or watershed distribution on the right. The probable cause is polycythemia rubra vera. Patient says she feels fine now. She remembers earlier that she had some numbness or a funny feeling on her left side. She is here with her significant other. I examined her in the emergency department at 6:30 PM on 12/09/2023. Her examination was significant for very subtle extinction to double simultaneous visual and tactile stimulation on the left side. She did not have a visual field cut. She had pronation and slight drift of the left arm with total stroke scale score of 2. Since her symptoms and signs were subtle, time of onset was unclear and she did not have a large vessel occlusion by CTA, which I reviewed with Dr. Swan. Review of Systems 2 General: Reports: 10 or more systems reviewed and unremarkable except in HPI and below Const: Denies: fever(s), chills or body aches Eyes: Denies: change in vision, blurry vision or blind spots Card: Denies: chest pain or palpitations Resp: Denies: dyspnea GI: Denies: nausea or vomiting Neuro: Reports: numbness in extremities and sensory changes; Denies: headache(s), weakness in extremities, lack of coordination, dizziness, vertigo, behavioral changes, Slurred speech present or difficulty communicating thoughts Flakito/Lymph: Denies: easy bruising, easy bleeding or petechiae Medications/Allergies Home Medications Medication Instructions Recorded Confirmed Last Taken Type acetaminophen 500 mg tablet 1,000 mg PO Q6H PRN Pain 12/09/23 12/09/23 12/09/23 08:00 History aspirin 81 mg tablet,delayed 81 mg PO DAILY #30 tabs 12/09/23 12/09/23 Unknown Rx release atorvastatin 40 mg tablet 40 mg PO DAILY #30 tabs 12/09/23 12/09/23 Unknown Rx clopidogrel 75 mg tablet 75 mg PO DAILY #30 tabs 12/09/23 12/09/23 Unknown Rx nxikyasu-hxdb-axis 8 mg-folic 400 1 tab PO DAILY 12/09/23 12/09/23 12/08/23 History mcg-K 50 mcg-lutein 300 mcg tablet (Multivitamin Women 50 Plus) Allergies Allergy/AdvReac Type Severity Reaction Status Date / Time No Known Allergies Allergy Verified 12/09/23 14:25 Current Medications Generic Name Dose Route Start Last Admin Trade Name Freq PRN Reason Stop Dose Admin Aspirin 162 mg 12/09/23 21:55 12/10/23 09:17 Aspirin 81 Mg Ec Tablet PO 162 mg DAILY ROSANA Administration Atorvastatin Calcium 40 mg 12/09/23 21:55 12/09/23 22:49 Atorvastatin 40 Mg Tablet PO 40 mg BEDTIME ROSANA Administration Clopidogrel Bisulfate 75 mg 12/09/23 21:55 12/10/23 09:17 Clopidogrel 75 Mg Tablet PO 75 mg DAILY ROSANA Administration Enoxaparin Sodium 40 mg 12/09/23 22:00 12/09/23 22:50 Enoxaparin 40 Mg/0.4 Ml Syringe SUBCUT 40 mg Q24H ROSANA Administration Lactated Ringer's 1,000 mls @ 30 mls/hr 12/09/23 22:00 12/09/23 22:49 Lactated Ringers IV 30 mls/hr .Q24H ROSANA Administration PFSH Acute 2 PFSH: Medical History No significant past medical history Social History Smoking and tobacco/nicotine status: never used tobacco/nicotine Alcohol intake: never Substance/Drug Use: never Vitals/I&O/Wt Last Vital Signs Temp 97.8 F 12/10/23 07:02 Pulse 59 L 12/10/23 07:02 Resp 16 12/10/23 07:02 BP 137/94 12/10/23 07:02 Pulse Ox 96 12/10/23 07:02 O2 Del Method Room Air 12/10/23 07:02 Weight last 48 hrs Weight 210 lb 9.6 oz Weight 222 lb 4.8 oz Weight 216 lb Physical Exam 2 Narrative: GENERAL: The patient was well-nourished with a healthy appearance and appropriately groomed. MENTAL STATUS: Orientation was full to 10 of 10 questions of orientation. Speech was fluent without word hesitation. No difficulty following a complex command. The affect was euthymic. CRANIAL NERVES: Her visual arechiga were full and eye movements were full. Out of a total of 10 examinations of the double simultaneous visual stimulation, she missed a stimulus on the left 3 times. MOTOR: There was pronation and drift of the left arm with the eyes closed and arms outstretched. No focal weakness. Fine movements were slightly slow on the left hand. SENSATION: Out of 10 trials for double simultaneous tactile stimulation she missed the stimulus on the left twice. COORDINATION: No tremor. No cerebellar signs. DEEP TENDON REFLEXES: 2/4 throughout. GAIT: She was able to stand at the bedside and march in place HEENT: She has a flushed appearance NECK: Carotid upstroke was strong bilaterally without bruits. The thyroid was not enlarged and there were no palpable lymph nodes. CHEST: Clear to auscultation. CARDIOVASCULAR: The heart sounds were normal without murmur or gallop. Regular rate and rhythm. EXTREMITIES: No rash Data 12/10/23 04:15 12/10/23 04:15 A&P Assessment and plan (1) Acute ischemic multifocal multiple vascular territories stroke: 58-year-old woman who presented with transient left-sided numbness and has subtle signs referable to the right hemisphere. Her CT scan of the head shows a subacute ischemic infarct in the right middle cerebral artery distribution versus watershed. She also has strokes of indeterminate age in the right caudate and right thalamus suggesting multiple strokes in multiple distributions. The cause may very well be polycythemia rubra vera as she has marked elevation of hemoglobin, hematocrit and platelet count. Discussed with Dr. Swan. CT angiogram completed and that study shows a filling defect in a small branch of the right A1 branch suggesting an embolus. Multiple irregular findings along the cavernous carotid artery and right carotid terminus also suggesting recanalized emboli or thrombi. These could be in keeping with polycythemia rubra vera. A cardiac source of multiple emboli needs to be ruled out by echocardiogram and prolonged cardiac monitoring. Discussed with Dr. Ramos. Hypercoagulable workup initiated. Discussed with Dr. Swan, Dr. Ramos and Dr. Murray. This patient should be able to go home after her echocardiogram is completed. She needs to be on Plavix and aspirin and have hematology evaluation is soon as possible with consideration for reduction in hemoglobin/hematocrit prior to leaving the hospital by phlebotomy if Dr. Ramos thinks appropriate. JA K mutation was drawn in the ER along with inflammatory and hypercoagulable studies. Plan discharge on aspirin and Plavix. I would like her to have MRI and follow-up MRA in 2 weeks and see her in my office. Consult Attestations 2 Medical Necessity Statement: Acute stroke with multiple strokes in multiple vascular distributions Coding Level of Care Code Acute Code for Hectortaj Fwd Diagnoses Acute ischemic multifocal multiple vascular territories stroke I63.89
[2023-12-10 11:08] LABS: Erythrocyte Sedimentation Rate 8 mm/hr (0-15)
[2023-12-10 12:35] LABS: Basophils # 0.1 10^3/uL (0.0-0.1); Basophils % 1.2 %; Eosinophils # 0.2 10^3/uL (0.0-0.8); Eosinophils % 2.4 %; Hematocrit 58.8 % (36-47); Lymphocytes # 1.1 10^3/uL (0.8-4.8); Lymphocytes % 10.9 %; Mean Corpuscular Hemoglobin 27.2 pg (27-33); Mean Corpuscular Volume 85.1 fl (85-98); Mean Platelet Volume 9.3 fL (7.4-10.4); Monocytes # 0.5 10^3/uL (0.2-0.9); Monocytes % 5.3 %; Neutrophils # 7.74 10^3/uL (1.8-7.7); Neutrophils % 79.6 %; Nucleated Red Blood Cells % 0 %; Platelet Count 836 10^3/cmm (157-399); Red Blood Count 6.91 10^6/uL (3.85-5.65); Red Cell Distribution Width 16.1 % (12.1-15.1); White Blood Count 9.73 10^3/uL (3.29-11.43)
[2023-12-10 13:06] LABS: Homocysteine 13.99 umol/l (0-15); Thyroid Stimulating Hormone 1.49 uIU/mL (0.27-4.20)
--- NOTE | 2023-12-10 13:20 | P.PN_ITS ---
Subjective 2 Subjective: - Patient was seen this morning -She is alert oriented x 3, following al l commands, no facial droop, no slurring of words, no focal neurologic deficits, I cannot discern any visual field deficits, -She tells me that she has a family hist ory of hypercoagulable events her father had strokes, she has a cousin whose had a history of blood clots in her 40s, -She does report recent fatigue and tire dness, no weight loss, no history of neuropathy no abdominal pain, no nausea, no vomiting no history of cancers, no chest pain no history of atrial fibrillation -She is on aspirin, statin, Plavix, -Discussed that we will discuss case wit h neurology, and hematology oncology given her polycythemia and thrombocytosis with her strokes, concerns for hypercoagulable event -Discussed case with neurology, ordered hypercoagulable panel, -Discussed with hematology oncology, deepika putnam on therapeutic phlebotomy, 1 unit, monitor hemoglobin thereafter, as hemoglobin is up to 18.8, platelet counts 18.8, start hydroxyurea, -ESR is 8, CRP within normal limits, EPO levels pending -Hypercoagulable panel including JAK2 or dered -I saw patient again early this morning, family members at bedside -I had a detailed discussion with him ab out our concerns for polycythemia and thrombocytosis as an etiology behind her stroke affecting multiple vascular territories -Had a detailed discussion with her, she denies any erythromelalgia like symptoms, no chest pain, no shortness of breath -Denies smoking, 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, no drug use, no history of cancer, UA did not show any evidence of blood, TSH within normal limits -Cardiac echo bubble study ordered, tele metry monitoring ordered -We discussed plan on therapeutic phlebo adrianne, hydroxyurea, will remove 1 unit of blood, continue IV fluids continue aspirin, statin, Plavix will monitor hemoglobin and platelet count thereafter -Patient and family voiced understanding , all questions answered, agreed to proceed Vitals/I&O/Wt Last Vital Signs Temp 97.9 F 12/10/23 11:41 Pulse 80 12/10/23 11:41 Resp 16 12/10/23 11:41 BP 136/81 12/10/23 11:41 Pulse Ox 96 12/10/23 11:41 O2 Del Method Room Air 12/10/23 11:41 Weight last 48 hrs Weight 95.527 kg Weight 100.834 kg Weight 97.976 kg Physical Exam 2 Const: COMMON NORMALS: no acute distress and patient oriented x3 Eye: COMMON NORMALS: Equal, round and reactive pupils present and EOMs intact bilaterally PUPIL: Yes Equal, round and reactive pupils present Resp: COMMON NORMALS: normal respiratory effort, No retractions, No use of accessory muscles and clear to auscultation bilaterally AUSCULTATION: clear to auscultation bilaterally Cardio: COMMON NORMALS: regular rate, regular rhythm, S1 normal heart sound present and S2 normal heart sound present RATE: regular rate RHYTHM: r egular rhythm HEART SOUNDS: S1 normal heart sound present and S2 normal heart sound present GI: COMMON NORMALS: Normal to inspection, nondistended, normoactive bowel sounds present and non-tender Extremity: COMMON NORMALS: no calf tenderness and no pedal edema Neuro: COMMON NORMALS: patient oriented x3, CN's II-XII intact bilaterally, moves all extremities, no focal motor deficits and no sensory deficits noted Psych: COMMON NORMALS: mental status grossly normal Data 12/10/23 12:21 12/10/23 04:15 A&P Assessment and plan (1) CVA (cerebral vascular accident): (2) Polycythemia: (3) Carotid artery disease: (4) HTN (hypertension): (5) Thrombocytosis: (6) Acute ischemic multifocal multiple vascular territories stroke: Plan Acute ischemic multifocal multiple vascular territory stroke -Transient left-sided numbness, -CT scan brain Brain: There is a large poorly defined area of irregular low density involving the right parietal lobe region. A similar smaller area of low density involves the right frontal lobe. Both areas demonstrate abnormalities that involves the cortex as well as the subcortical white matter. A 1.5 cm old infarct involves the right basal ganglia anteriorly. 1 cm diameter old infarct involves the right internal capsule. No evidence of hemorrhage. -CTA head and neck CT/CT angio headneck* [id number] IMPRESSION: 1. Filling defect suggested involving a diminutive right A1 branch concerning for thrombus. 2. Irregular dqoj-ov-dtrajslx narrowing is seen involving the proximal right cavernous carotid artery. Irregularity is also seen involving the right carotid terminus with mild narrowing. Findings may be related to atherosclerotic plaque versus recanalized thrombus. IMPRESSION: Linear defect is seen through the left vertebral artery at the V2/V3 junction which may be artifactual as there is an abundant amount of hardware artifact from dental amalgam seen at this level. Dissection however cannot be entirely excluded. Findings may be further assessed with MR angiogram. Plan -Neurochecks -NIH stroke scale -Allow for permissive hypertension -IV fluids -Therapeutic phlebotomy -Start hydroxyurea -Continue aspirin, statin, Plavix -Lovenox for DVT prophylaxis -Follow cardiac echo bubble study -Will need an outpatient MRA, MRI in 2 weeks based on testing as above -Full code Polycythemia with thrombocytosis -No history of smoking, no history of sleep apnea -BMI 34 -No prior blood work to compare to -Thrombocytosis, and platelet count continue to increase despite IV fluids, hemoglobin 18.8, platelet count 836 -EPO levels ordered -ESR within normal limits -Jak2 panel levels ordered -Hyper coagulable panel ordered -Iron, ferritin ordered -Given abdominal distention, LFT abnormalities CT scan abdomen pelvis ordered -After discussion with Dr. Ramos -Plan on therapeutic phlebotomy, starting hydroxyurea -Monitor hemoglobin every 6 hours Thyroid nodule -Will need to follow-up with primary care provider as outpatient - Patient was seen this morning -She is alert oriented x 3, following all commands, no facial droop, no slurring of words, no focal neurologic deficits, I cannot discern any visual field deficits, -She tells me that she has a family history of hypercoagulable events her father had strokes, she has a cousin whose had a history of blood clots in her 40s, -She does report recent fatigue and tiredness, no weight loss, no history of neuropathy no abdominal pain, no nausea, no vomiting no history of cancers, no chest pain no history of atrial fibrillation -She is on aspirin, statin, Plavix, -Discussed that we will discuss case with neurology, and hematology oncology given her polycythemia and thrombocytosis with her strokes, concerns for hypercoagulable event -Discussed case with neurology, ordered hypercoagulable panel, -Discussed with hematology oncology, plan on therapeutic phlebotomy, 1 unit, monitor hemoglobin thereafter, as hemoglobin is up to 18.8, platelet counts 18.8, start hydroxyurea, -ESR is 8, CRP within normal limits, EPO levels pending -Hypercoagulable panel including JAK2 ordered -I saw patient again early this morning, family members at bedside -I had a detailed discussion with him about our concerns for polycythemia and thrombocytosis as an etiology behind her stroke affecting multiple vascular territories -Had a detailed discussion with her, she denies any erythromelalgia like symptoms, no chest pain, no shortness of breath -Denies smoking, no history of sleep apnea, no drug use, no history of cancer, UA did not show any evidence of blood, TSH within normal limits -Cardiac echo bubble study ordered, telemetry monitoring ordered -We discussed plan on therapeutic phlebotomy, hydroxyurea, will remove 1 unit of blood, continue IV fluids continue aspirin, statin, Plavix will monitor hemoglobin and platelet count thereafter -Patient and family voiced understanding, all questions answered, agreed to proceed Attestations 2 Medical Necessity Statement*: Patient requires hospitalization for CVA, concerns for polycythemia, thrombocytosis as an etiology, Diagnoses CVA (cerebral vascular accident) I63.9 Polycythemia D75.1 Carotid artery disease I77.9 HTN (hypertension) I10 Thrombocytosis D75.839 Acute ischemic multifocal multiple vascular territories stroke I63.89
[2023-12-10] MEDS: hydroxyurea 500 mg Capsule PO (13:25)
--- NOTE | 2023-12-10 13:30 | CT_ITS ---
WS: [id number] CT ABDOMEN PELVIS TECHNIQUE: Contrast-enhanced CT of the abdomen and pelvis with coronal and sagittal reformatted image s. CLINICAL INFORMATION: abdomen distended, fatigue, polcythemia, thrombosytosis COMPARISON: None. DLP: 926.[address] scans at [facility] use at least one of these dose optimization techniques: automated e xposure control; mA and/or kV adjustment per patient size (includes targeted exams where dose is matc hed to clinical indication); or iterative reconstruction. FINDINGS: Mild hepatomegaly. A few tiny hepatic cysts. Normal portal vein and splenic vein. Splenomegaly with s pleen measuring 14.0 cm [id number]. Small esophageal hiatal hernia. Lung bases are well aerated. No rmal pancreatic parenchymal enhancement. Adrenal glands are normal. Normal renal parenchymal enhancem ent. No hydronephrosis. Adrenal glands are normal. Celiac and SMA are patent. Normal small and large bowel. Tiny fat-containing umbilical hernia. Hemangioma L1 vertebral body. Few vague small lytic lesions in the lumbar spine sacrum and bony pelvis. These are nonspecific. Recomme nd further evaluation with bone scan. Recommend correlation for multiple myeloma. CT/CT abdomen pelvis w con* [id number] IMPRESSION: 1. Splenomegaly with loss of the normal splenic concavity. Recommend correlati on with laboratory function studies. Recommend correlation for leukemia, lympho ma, and hematologic disorders 2. A few indeterminant subtle ovoid lytic lesions within the lumbar spine pelv is and bony sacrum. Recommend further evaluation with bone scan to evaluate for metastatic disease. Multiple myeloma is an additional consideration. 3. Few tiny hepatic cysts. No lymphadenopathy in the abdomen or pelvis.
[2023-12-10 13:44] LABS: Ferritin 42 ng/mL (15-150); Iron 87 ug/dL (37-145); Total Iron Binding Capacity 300 mcg/dl; Unsaturated Iron Binding 213 ug/dL (112-347)
[2023-12-10] MEDS: iohexol 350 mg/mL 500 mL Btl (per mL) IV (14:15)
[2023-12-10 16:13] LABS: Basophils # 0.1 10^3/uL (0.0-0.1); Eosinophils # 0.2 10^3/uL (0.0-0.8); Eosinophils % 2.5 %; Hematocrit 55.6 % (36-47); Lymphocytes # 1.1 10^3/uL (0.8-4.8); Lymphocytes % 11.6 %; Mean Corpuscular HGB Conc 31.8 g/dL (30-55); Mean Corpuscular Hemoglobin 26.7 pg (27-33); Mean Corpuscular Volume 83.7 fl (85-98); Mean Platelet Volume 9.1 fL (7.4-10.4); Monocytes # 0.6 10^3/uL (0.2-0.9); Neutrophils % 78.2 %; Nucleated Red Blood Cells % 0 %; Platelet Count 834 10^3/cmm (157-399); Red Blood Count 6.64 10^6/uL (3.85-5.65); Red Cell Distribution Width 15.7 % (12.1-15.1)
--- NOTE | 2023-12-10 16:32 | CTR_ITS ---
PROCEDURE INFORMATION: Exam: CT Chest Without Contrast; Diagnostic Exam date and time: 12/10/2023 5:10 PM Age: 58 years old Clinical indication: Dyspnea; Additional info: Metastatic ovoid lytic lesion? TECHNIQUE: Imaging protocol: Diagnostic computed tomography of the chest without contrast. Radiation optimization: All CT scans at this facility use at least one of these dose optimization techniques: automated exposure control; mA and/or kV adjustment per patient size (includes targeted exams where dose is matched to clinical indication); or iterative reconstruction. COMPARISON: CT cervical spin wo con* [id number] 12/10/2023 5:08 PM RADIATION DOSE METRICS: Total DLP (mGy-cm): 594.78 FINDINGS: Lungs: Unremarkable. No consolidation. No masses. Pleural spaces: Unremarkable. No pneumothorax. No pleural effusion. Heart: No coronary artery calcifications. No cardiomegaly. No pericardial effusion. Lymph nodes: Unremarkable. No enlarged lymph nodes. Vasculature: Unremarkable. No aortic aneurysm. Spleen: Enlarged spleen. Bones/joints: Vertebral hemangioma noted in L1. No aggressive lytic or sclerotic bone lesions in the thoracic spine or visualized axial skeleton of the chest. No acute fracture. Soft tissues: Unremarkable. Other findings: A low-attenuation ovoid region measuring 1.5 cm in the prevascular space appears to reflect focal fluid given its internal Hounsfield units series 4, image 15. CT/CT chest wo con [id number] IMPRESSION: 1. No evidence of metastatic disease in the chest. 2. Splenomegaly.
--- NOTE | 2023-12-10 16:32 | CTR_ITS ---
PROCEDURE INFORMATION: Exam: CT Cervical Spine Without Contrast Exam date and time: 12/10/2023 5:08 PM Age: 58 years old Clinical indication: Neck pain; Additional info: Neck pain, metastaticovid lytic lesionin lumbar and sacrum TECHNIQUE: Imaging protocol: Computed tomography of the cervical spine without contrast. Radiation optimization: All CT scans at this facility use at least one of these dose optimization techniques: automated exposure control; mA and/or kV adjustment per patient size (includes targeted exams where dose is matched to clinical indication); or iterative reconstruction. COMPARISON: CT angio headneck* [id number] 12/09/2023 6:48 PM RADIATION DOSE METRICS: Total DLP (mGy-cm): 219.37 FINDINGS: Bones: No acute fracture. No aggressive lytic or blastic osseous lesions. Normal alignment. No significant disc bulge or herniation. No severe spinal canal stenosis. Lungs: Lung apices are normal. Soft tissues: Unremarkable. CT/CT cervical spin wo con* [id number] IMPRESSION: No acute findings. No evidence of osseous metastatic disease in the cervical spine.
--- NOTE | 2023-12-10 17:37 | P.CONIM_ITS ---
Providers/Reason For Consult 2 Attending Physician: Dayne Palm MD History of Present Illness History of Present Illness Antonia Steel is a 58 year old female Medications/Allergies Home Medications Medication Instructions Recorded Confirmed Last Taken Type acetaminophen 500 mg tablet 1,000 mg PO Q6H PRN Pain 12/09/23 12/09/23 12/09/23 08:00 History aspirin 81 mg tablet,delayed 81 mg PO DAILY #30 tabs 12/09/23 12/09/23 Unknown Rx release atorvastatin 40 mg tablet 40 mg PO DAILY #30 tabs 12/09/23 12/09/23 Unknown Rx clopidogrel 75 mg tablet 75 mg PO DAILY #30 tabs 12/09/23 12/09/23 Unknown Rx vvqjdalh-ceyc-xtlm 8 mg-folic 400 1 tab PO DAILY 12/09/23 12/09/23 12/08/23 History mcg-K 50 mcg-lutein 300 mcg tablet (Multivitamin Women 50 Plus) Allergies Allergy/AdvReac Type Severity Reaction Status Date / Time No Known Allergies Allergy Verified 12/09/23 14:25 Current Medications Generic Name Dose Route Start Last Admin Trade Name Freq PRN Reason Stop Dose Admin Aspirin 162 mg 12/09/23 21:55 12/10/23 09:17 Aspirin 81 Mg Ec Tablet PO 162 mg DAILY ROSANA Administration Atorvastatin Calcium 40 mg 12/09/23 21:55 12/09/23 22:49 Atorvastatin 40 Mg Tablet PO 40 mg BEDTIME ROSANA Administration Clopidogrel Bisulfate 75 mg 12/09/23 21:55 12/10/23 09:17 Clopidogrel 75 Mg Tablet PO 75 mg DAILY ROSANA Administration Enoxaparin Sodium 40 mg 12/09/23 22:00 12/09/23 22:50 Enoxaparin 40 Mg/0.4 Ml Syringe SUBCUT 40 mg Q24H ROSANA Administration Hydroxyurea 500 mg 12/10/23 12:01 12/10/23 13:25 Hydroxyurea 500 Mg Capsule PO 500 mg Q12H ROSANA Administration Lactated Ringer's 1,000 mls @ 75 mls/hr 12/09/23 22:00 12/09/23 22:49 Lactated Ringers IV 30 mls/hr .[id number] ROSANA Administration PFSH Acute 2 PFSH: Medical History (Updated 12/10/23 @ 17:38 by Hakeem Ramos MD) No significant past medical history Surgical History (Updated 12/10/23 @ 18:41 by Hakeem Ramos MD) History of lumbar laminectomy Lumbar laminectomy with L5/S1 discectomy Family History (Updated 12/10/23 @ 18:44 by Hakeem Ramos MD) Father Pituitary adenoma Other Thrombosis Social History Smoking and tobacco/nicotine status: never used tobacco/nicotine Alcohol intake: never Substance/Drug Use: never Vitals/I&O/Wt Last Vital Signs Temp 98.4 F 12/10/23 15:32 Pulse 72 12/10/23 15:32 Resp 16 12/10/23 15:32 BP 133/85 12/10/23 15:32 Pulse Ox 96 12/10/23 15:32 O2 Del Method Room Air 12/10/23 15:32 12/10/23 12/10/23 12/10/23 06:59 14:59 22:59 Intake Total 118 / 118 Balance 118 / 118 Weight last 48 hrs Weight 210 lb 9.6 oz Weight 222 lb 4.8 oz Weight 216 lb Data 12/10/23 16:02 12/10/23 04:15 A&P Assessment and plan (1) Polycythemia vera: Coding Level of Care Code Acute Code for Chg Fwd Diagnoses Polycythemia vera D45
--- NOTE | 2023-12-10 17:45 | P.CONIM_ITS ---
Providers/Reason For Consult 2 Consulting Physician/Specialty*: Hematology Reason for Consult*: Elevated blood counts Requesting Physician: Dayne Palm MD Attending Physician: Dayne Palm MD History of Present Illness History of Present Illness Antonia Steel is a 58 year old with suspected polycythemia vera, presenting with pancytosis and acute multifocal strokes. She has been in excellent general health. She had presented to the emergency room yesterday with numbness in her left hand and some difficulty walking. Her head CT showed a subacute ischemic infarct in the right middle cerebral artery distribution. She was initially discharged home, as her symptoms had completely resolved. After review of the CT, she was called and brought back in for admission. By that time she had experienced an episode of disequilibrium and speech difficulty. By the time she was admitted, those symptoms had resolved. CT angiogram showed a suggestion of a filling defect involving a diminutive right A1 branch, concerning for thrombus. There was noted to be irregular mild to moderate narrowing involving the proximal right cavernous carotid artery. Irregularity also was seen involving the right carotid terminus with mild narrowing. The findings were felt to be related to atherosclerotic plaque versus recanalized thrombus. In the meantime, her initial CBC had shown nash cytosis with hemoglobin 17.8 g and hematocrit 55.9%, white blood cell count 11,800, and platelet count 828,000. Comprehensive metabolic profile showed BUN 17 and creatinine 0.9 mg/dL. Bilirubin is normal at 0.4 mg/dL. The SGPT was slightly elevated at 37/33 U/L and the alkaline phosphatase was elevated at 115/105 U/L. The bilirubin and SGOT were normal. Albumin was normal at 4.0 g/dL with calculated serum globulin 2.9 g/dL. Her CBC this morning showed similar findings with hemoglobin 17.7 g, white blood cell count 10,400, and platelet count 796,000. Her serum iron studies showed normal transferrin saturation at 29% and the ferritin was normal at 42 ng/mL. Her CT abdomen/pelvis showed mild hepatomegaly. The spleen was noted to be enlarged enlarged, measuring 14.0 cm. Also noted were few indeterminate subtle ovoid lytic lesions within the lumbar spine, pelvis, and bony sacrum. There was no lymphadenopathy noted in the abdomen or pelvis. CT of the cervical spine showed no acute findings. Chest CT showed no evidence of primary or metastatic malignancy. With those findings, she was phlebotomized today and she also is starting treatment with hydroxyurea 500 mg twice daily along with aspirin and clopidogrel. Molecular studies including JAK2 [id number] with reflex to JAK2 exon 12 are pending, and an erythropoietin level also is pending. At this point she has had complete resolution of her neurologic symptoms. She does report that she has been feeling fatigued for least the past month or so. Her ECOG score is 1. Appetite has been okay. She has not had fever, night sweats, or itching. She is postmenopausal, and she has not been on any hormone replacement therapy. She has had some mild visual changes. She has some sinus drainage with associated cough. She has not had sore mouth or throat, and she has not had difficulty swallowing. She does not complain of shortness of breath or chest pain. She has no GI or complaints. She has had some neck pain, attributable to working on the computer all day. She has had previous lumbar surgery for ruptured disc, and she sometimes feels grating in the low back area, but she really does not have much pain there. She has been having headaches, and she has been having some episodes of disequilibrium for at least the past month or so. She has not had abnormal bruising or bleeding. She does have some stress related to work and to family issues. Review of Systems 2 Narrative: Constitutional: She has felt fatigued. Appetite is good and weight is stable. No fever, night sweats, or hot flashes. ECOG score is 1. Eyes:?She has had some visual changes. ENMT: No hearing loss. She has sinus drainage. No mouth sores. No sore throat or difficulty swallowing. Hematologic/Lymphatic: No abnormal bruising or bleeding. Respiratory: No shortness of breath. She has some cough with the sinus drainage. No pleuritic pain or hemoptysis. Cardiovascular: No angina pain. No palpitations. Gastrointestinal: No nausea or vomiting. No heartburn or acid reflux. No diarrhea or constipation. No blood in the stool or black stools. Genitourinary: No dysuria or hematuria. No urinary frequency. No urgency or incontinence. Musculoskeletal: She has pain in her neck, attributable to working on the computer. Integumentary: No skin rash or other skin changes. Neurologic: She has been having some headaches, and she has had episodes of disequilibrium. Psych:?She reports having stress, but not depression. No insomnia. Medications/Allergies Home Medications Medication Instructions Recorded Confirmed Last Taken Type acetaminophen 500 mg tablet 1,000 mg PO Q6H PRN Pain 12/09/23 12/09/23 12/09/23 08:00 History aspirin 81 mg tablet,delayed 81 mg PO DAILY #30 tabs 12/09/23 12/09/23 Unknown Rx release atorvastatin 40 mg tablet 40 mg PO DAILY #30 tabs 12/09/23 12/09/23 Unknown Rx clopidogrel 75 mg tablet 75 mg PO DAILY #30 tabs 12/09/23 12/09/23 Unknown Rx [id number] 8 mg-folic 400 1 tab PO DAILY 12/09/23 12/09/23 12/08/23 History mcg-K 50 mcg-lutein 300 mcg tablet (Multivitamin Women 50 Plus) Allergies Allergy/AdvReac Type Severity Reaction Status Date / Time No Known Allergies Allergy Verified 12/09/23 14:25 Current Medications Generic Name Dose Route Start Last Admin Trade Name Freq PRN Reason Stop Dose Admin Aspirin 162 mg 12/09/23 21:55 12/10/23 09:17 Aspirin 81 Mg Ec Tablet PO 162 mg DAILY ROSANA Administration Atorvastatin Calcium 40 mg 12/09/23 21:55 12/09/23 22:49 Atorvastatin 40 Mg Tablet PO 40 mg BEDTIME ROSANA Administration Clopidogrel Bisulfate 75 mg 12/09/23 21:55 12/10/23 09:17 Clopidogrel 75 Mg Tablet PO 75 mg DAILY ROSANA Administration Enoxaparin Sodium 40 mg 12/09/23 22:00 12/09/23 22:50 Enoxaparin 40 Mg/0.4 Ml Syringe SUBCUT 40 mg Q24H ROSANA Administration Hydroxyurea 500 mg 12/10/23 12:01 12/10/23 13:25 Hydroxyurea 500 Mg Capsule PO 500 mg Q12H ROSANA Administration Lactated Ringer's 1,000 mls @ 75 mls/hr 12/09/23 22:00 12/09/23 22:49 Lactated Ringers IV 30 mls/hr .[id number] ROSANA Administration PFSH Acute 2 PFSH: Medical History (Updated 12/10/23 @ 17:38 by Hakeem Ramos MD) No significant past medical history Surgical History (Updated 12/10/23 @ 18:41 by Hakeem Ramos MD) History of lumbar laminectomy Lumbar laminectomy with L5/S1 discectomy Family History (Updated 12/10/23 @ 18:44 by Hakeem Ramos MD) Father Pituitary adenoma Other Thrombosis Social History Smoking and tobacco/nicotine status: never used tobacco/nicotine Alcohol intake: never Substance/Drug Use: never Other PFSH information: Supplemental PFSH Information: A first cousin had blood clots, reportedly in association with prolactinoma. Vitals/I&O/Wt Last Vital Signs Temp 98.4 F 12/10/23 15:32 Pulse 72 12/10/23 15:32 Resp 16 12/10/23 15:32 BP 133/85 12/10/23 15:32 Pulse Ox 96 12/10/23 15:32 O2 Del Method Room Air 12/10/23 15:32 12/10/23 12/10/23 12/10/23 06:59 14:59 22:59 Intake Total 118 / 118 240 / 358 Balance 118 / 118 240 / 358 Weight last 48 hrs Weight 210 lb 9.6 oz Weight 222 lb 4.8 oz Weight 216 lb Physical Exam 2 Narrative: Constitutional: She appears to be in good general health. Eyes: Sclerae nonicteric. Conjunctivae clear. ENMT: No lesions noted in the oral cavity. Hematologic/Lymphatic: No cervical or clavicular adenopathy. Respiratory: Lungs are clear with good air movement bilaterally. Cardiovascular: Heart rhythm is regular. There is no murmur, gallop, or rub noted. There is no carotid bruit noted. Breasts: There are no breast masses noted, and there is no axillary adenopathy noted. Abdomen: Soft and non-tender. Liver is not enlarged. I am not able to palpate the spleen. There is no abdominal mass or ascites noted and there is no inguinal adenopathy. Extremities: No edema. Posterior tibial pulses are palpable bilaterally. Integumentary: No rashes. No suspicious skin lesions noted. Neurologic: She does not appear to have any focal neurologic deficit. Data 12/10/23 16:02 12/10/23 04:15 A&P Assessment and plan (1) Polycythemia vera: This patient has suspected polycythemia vera, presenting with pancytosis, CT evidence of splenomegaly, and acute ischemic multifocal strokes. Based on the above findings, she was recommended to be phlebotomized today and to start hydroxyurea at 500 mg twice daily. Her molecular studies and erythropoietin level are pending. I also would check baseline LDH and uric acid level. I think it would be reasonable initially to phlebotomize her daily with fluid replacement until there has been some decline in the hemoglobin/hematocrit levels. Beyond that, we would typically manage this and an outpatient setting with weekly blood counts and with further phlebotomies and/or adjustments to the hydroxyurea dosage as indicated. She should have outpatient follow-up at our office within 2 weeks. Coding Level of Care Code Acute Code for Chg Fwd Diagnoses Polycythemia vera D45
[2023-12-10 20:50] LABS: Bilirubin Urine Negative (Negative); Blood Urine Negative (Negative); Glucose Urine UA Negative (Normal); Ketones Urine Negative (Negative); Leukocyte Esterase Urine Negative (Negative); Nitrate Urine Negative (Negative); Protein Urine Negative (Negative); Specific Gravity, Urine 1.013 (1.005-1.030); Urine Appearance Clear (CLEAR); Urine Color Yellow (Yellow); Urobilinogen Urine 0.2 mg/dL (Negative); pH Urine 6.5 (5-7)
[2023-12-10 20:55] LABS: Add Urine Microscopic? YES; Bacteria Urine None Seen /hpf; Hyaline Casts Urine 0-4 /lpf; RBC Urine 0-2 /hpf (0-2); Squamous Epithelial Cell Urine 0-5 /hpf (0-5); WBC Urine 0-5 /hpf (0-5)
[2023-12-10] MEDS: atorvastatin 40 mg Tablet PO (21:12)
[2023-12-10] MEDS: enoxaparin 40 mg/0.4 mL Syringe SUBCUT (21:12)
[2023-12-11] VITALS (8 sets, daily range): BP systolic 130–145; BP diastolic 76–91; PULSE 57–73; RESP 16–18; TEMP 36.3–36.8; O2SAT 93–96
[2023-12-11] MEDS: hydroxyurea 500 mg Capsule PO ×2 (00:12→12:38)
[2023-12-11] MEDS: acetaminophen 325 mg Tablet 650 MG PO ×2 (03:00→15:27)
[2023-12-11 05:14] LABS: Basophils # 0.1 10^3/uL (0.0-0.1); Basophils % 1.2 %; Eosinophils # 0.3 10^3/uL (0.0-0.8); Eosinophils % 3.1 %; Hematocrit 52.8 % (36-47); Lymphocytes # 1.5 10^3/uL (0.8-4.8); Lymphocytes % 14.9 %; Mean Corpuscular HGB Conc 31.6 g/dL (30-55); Mean Corpuscular Hemoglobin 26.9 pg (27-33); Mean Corpuscular Volume 85.2 fl (85-98); Mean Platelet Volume 9.5 fL (7.4-10.4); Monocytes # 0.7 10^3/uL (0.2-0.9); Monocytes % 7.5 %; Neutrophils # 7.16 10^3/uL (1.8-7.7); Neutrophils % 72.7 %; Nucleated Red Blood Cells % 0 %; Platelet Count 746 10^3/cmm (157-399); Red Cell Distribution Width 15.1 % (12.1-15.1); White Blood Count 9.86 10^3/uL (3.29-11.43)
[2023-12-11 05:29] LABS: Anion Gap 14.6 (5-19); Blood Urea Nitrogen 13 mg/dL (6-20); Calcium 9.1 mg/dL (8.5-10.5); Carbon Dioxide 24 mmol/L (22-29); Chloride 106 mmol/L (98-107); Creatinine Clr Calc Pharmacy 106.2892; Glomerular Filtration Rate 86.2 mL/min (90-130); Glucose 98 mg/dL (65-115); Osmolality Calculated 292 mOsm/kg (285-295); Potassium 3.6 mmol/L (3.5-5.1); Sodium 141 mmol/L (136-145)
[2023-12-11] MEDS: aspirin 81 mg EC Tablet 162 MG PO (09:00)
[2023-12-11] MEDS: clopidogrel 75 mg Tablet PO (09:01)
--- NOTE | 2023-12-11 11:08 | P.DS_ITS ---
Discharge Providers Date of Admission: 12/09/23 20:02 Date of Discharge: December 11, 2023 Attending Provider at Admission: Dayne Palm MD Attending Provider at Discharge: Dayne Palm MD Diagnoses at Discharge Discharge Diagnosis (1) Polycythemia vera: Status: Acute Reason for Visit Reason for Visit: neuro/symptoms Hospital Course Hospital Course This is a 58-year-old female with no significant past medical history, who presents to [facility] for left-sided numbness, weakness Patient was mated to [facility] for acute ischemic multifocal multi vascular territory stroke, with transient left-sided numbness, -CT scan brain Brain: There is a large poorly defined area of irregular low density involving the right parietal lobe region. A similar smaller area of low density involves the right frontal lobe. Both areas demonstrate abnormalities that involves the cortex as well as the subcortical white matter. A 1.5 cm old infarct involves the right basal ganglia anteriorly. 1 cm diameter old infarct involves the right internal capsule. No evidence of hemorrhage. -CTA head and neck CT/CT angio headneck* [id number] IMPRESSION: 1. Filling defect suggested involving a diminutive right A1 branch concerning for thrombus. 2. Irregular fena-ia-wolimygx narrowing is seen involving the proximal right cavernous carotid artery. Irregularity is also seen involving the right carotid terminus with mild narrowing. Findings may be related to atherosclerotic plaque versus recanalized thrombus. IMPRESSION: Linear defect is seen through the left vertebral artery at the V2/V3 junction which may be artifactual as there is an abundant amount of hardware artifact from dental amalgam seen at this level. Dissection however cannot be entirely excluded. Findings may be further assessed with MR angiogram. -She was monitored as inpatient, neurochecks, NIH stroke scale, permissive hypertension, IV fluids, aspirin, statin, Plavix ? After consultation with hematology oncology, and neurology, it was deemed that the etiology behind patient's CVA is likely polycythemia vera and thrombocytosis with hypercoagulable event ? Patient had 2 therapeutic phlebotomies, with hydroxyurea ? She tolerated procedure well, no significant fatigue, or hypotension, received IV fluids ? She will be discharged with a close follow-up with her primary care provider in hematology for recheck hemoglobin next week ? Hemoglobin discharge 16.6 ? Patient was advised if she were to have any recurrent strokelike symptoms to immediately call [phone] ? Monitor for lightheadedness and dizziness, given her to therapeutic phlebotomies, hydrate well if so come back to the hospital ? Discharge on her aspirin, statin, Plavix ? Discharged on hydroxyurea Linear defect is seen through the left vertebral artery at the V2/V3 junction which may be artifactual as there is an abundant amount of hardware artifact from dental amalgam seen at this level. Dissection however cannot be entirely excluded. Findings may be further assessed with MR angiogram - GIVEN imaging findings as above ? She will be discharged with an order for an MRI/MRA brain to be done within 2 weeks ? Follow-up with neurology as outpatient ? Will be discharged with an event monitor in place For her thyroid nodule, follow-up with Dr. Antony as outpatient for thyroid biopsy For her polycythemia vera with thrombocytosis WITH SPLENOMEGALY ? She had a hypercoagulable panel ordered, follow-up with Dr. Ramos CT ABDOMEN AND PELVIS 2. A few indeterminant subtle ovoid lytic lesions within the lumbar spine pelvis and bony sacrum. Recommend further evaluation with bone scan to evaluate for metastatic disease. Multiple myeloma is an additional consideration. -Follow-up with hematology oncology for bone scan Physical Exam Const: COMMON NORMALS: no acute distress and patient oriented x3 Eye: COMMON NORMALS: Equal, round and reactive pupils present and EOMs intact bilaterally PUPIL: Yes Equal, round and reactive pupils present Resp: COMMON NORMALS: normal respiratory effort, No retractions, No use of accessory muscles and clear to auscultation bilaterally AUSCULTATION: clear to auscultation bilaterally Cardio: COMMON NORMALS: regular rate, regular rhythm, S1 normal heart sound present and S2 normal heart sound present RATE: regular rate RHYTHM: regular rhythm HEART SOUNDS: S1 normal heart sound present and S2 normal heart sound present GI: COMMON NORMALS: Normal to inspection, nondistended, normoactive bowel sounds present and non-tender Extremity: COMMON NORMALS: no calf tenderness and no pedal edema Neuro: COMMON NORMALS: patient oriented x3, CN's II-XII intact bilaterally, moves all extremities and no focal motor deficits Psych: COMMON NORMALS: mental status grossly normal Discharge Data Studies Completed and Pending Completed Studies During Hospitalization Category Date Time Status CT abdomen pelvis w con* [id number] Stat Cat Scan 12/10/23 13:[address] cervical spin wo con* [id number] Routine Cat Scan 12/10/23 16:[address] chest wo con [id number] Routine Cat Scan 12/10/23 16:32 Completed CTA head neck [CT angio headneck* [id number]] Stat Cat Scan 12/09/23 18:10 Completed CV. echo w/w bubble cont [id number] Routine Ultrasound 12/09/23 22:00 Completed Pending at discharge Category Date Time Status ROWENA Profile Rheumatology Stat Lab 12/10/23 12:21 Received Antiphospholipid Antibody Drake Routine Lab 12/10/23 12:21 Received Basic Metabolic Panel AM LABS Lab 12/12/23 04:00 Ordered Hivj-9-[id number] Stat Lab 12/10/23 16:33 Received CARDIOLIPIN AB (IGA,IGG,IGM) Stat Lab 12/10/23 12:21 Received Complete Blood Count w/Auto AM LABS Lab 12/12/23 04:00 Ordered Erythropoietin Stat Lab 12/10/23 12:21 Received FREE LIGHT CHAIN SERUM [KAPPA/LAMBDA Light Free Serum] Lab 12/10/23 16:33 Received Routine Factor 5 Leiden Mutation Stat Lab 12/10/23 12:21 Received Immunofixation Serum Stat Lab 12/10/23 16:33 Received JAK2 Exon 12 Mutation Routine Lab 12/10/23 12:21 Received JAK2 V617 Mutation Routine Lab 12/10/23 12:21 Received PROTEIN C, ACTIVITY Stat Lab 12/10/23 12:21 Received PROTEIN S, ACTIVITY Stat Lab 12/10/23 12:21 Received PROTHROMBIN (FACTOR II) [id number] Stat Lab 12/10/23 12:21 Received Serum Protien Electrophoresis [Total Protein Lab 12/10/23 16:33 Received Electrophoresis] Routine Urinalysis Routine Lab 12/10/23 10:56 Uncollected Radiology Impressions Head/Neck CTA 12/09/23 18:10 IMPRESSION: 1. Filling defect suggested involving a diminutive right A1 branch concerning for thrombus. 2. Irregular vgbg-rh-wtbnllav narrowing is seen involving the proximal right cavernous carotid artery. Irregularity is also seen involving the right carotid terminus with mild narrowing. Findings may be related to atherosclerotic plaque versus recanalized thrombus. IMPRESSION: Linear defect is seen through the left vertebral artery at the V2/V3 junction which may be artifactual as there is an abundant amount of hardware artifact from dental amalgam seen at this level. Dissection however cannot be entirely excluded. Findings may be further assessed with MR angiogram. COMMENTS: Consistent with the [employer]'s Incidental Findings Committee white paper (J Am Charu Radiol 2015): In patients aged 35 years and older with an incidental thyroid nodule equal to or greater than 1.[address], MRI or extrathyroidal US, further evaluation with dedicated thyroid US is recommended for patients with normal life expectancy and without comorbidities. For smaller nodules without suspicious features, no further evaluation or follow up is recommended. REFERENCES: NASCET CRITERIA. The degree of stenosis in the cervical segment of the internal carotid artery is based on NASCET criteria. Normal is no stenosis. Mild is less than 50% stenosis. Moderate is 50-69% stenosis. Severe is 70% to 99% stenosis. Total occlusion is no detectable patent lumen. ADDENDUM: 12/09/231943 ADDENDUM: THIS REPORT CONTAINS FINDINGS THAT MAY BE CRITICAL TO PATIENT CARE. The findings were verbally communicated via telephone conference with Dr. Angulo at 7:43 PM CDT on 12/09/2023. The findings were acknowledged and understood. Abdomen/Pelvis CT 12/10/23 13:30 IMPRESSION: 1. Splenomegaly with loss of the normal splenic concavity. Recommend correlation with laboratory function studies. Recommend correlation for leukemia, lymphoma, and hematologic disorders 2. A few indeterminant subtle ovoid lytic lesions within the lumbar spine pelvis and bony sacrum. Recommend further evaluation with bone scan to evaluate for metastatic disease. Multiple myeloma is an additional consideration. 3. Few tiny hepatic cysts. No lymphadenopathy in the abdomen or pelvis. Cervical Spine CT 12/10/23 16:32 IMPRESSION: No acute findings. No evidence of osseous metastatic disease in the cervical spine. Chest CT 12/10/23 16:32 IMPRESSION: 1. No evidence of metastatic disease in the chest. 2. Splenomegaly. Laboratory Results WBC 9.86 10^3/uL (3.29-11.43) 12/11/23 04:27 RBC 6.20 10^6/uL (3.85-5.65) H 12/11/23 04:27 Hgb 16.70 g/dL (11.27-16.99) 12/11/23 04:27 Hct 52.8 % (36-47) H 12/11/23 04:27 MCV 85.2 fl (85-98) 12/11/23 04:27 MCH 26.9 pg (27-33) L 12/11/23 04:27 MCHC 31.6 g/dL (30-55) 12/11/23 04:27 RDW 15.1 % (12.1-15.1) 12/11/23 04:27 Plt Count 746 10^3/cmm (157-399) H 12/11/23 04:27 MPV 9.5 fL (7.4-10.4) 12/11/23 04:27 Neut % (Auto) 72.7 % 12/11/23 04:27 Lymph % (Auto) 14.9 % 12/11/23 04:27 [place] % (Auto) 7.5 % 12/11/23 04:27 Eos % (Auto) 3.1 % 12/11/23 04:27 Baso % (Auto) 1.2 % 12/11/23 04:27 Neut # (Auto) 7.16 10^3/uL (1.8-7.7) 12/11/23 04:27 Lymph # (Auto) 1.5 10^3/uL (0.8-4.8) 12/11/23 04:27 [place] # (Auto) 0.7 10^3/uL (0.2-0.9) 12/11/23 04:27 Eos # (Auto) 0.3 10^3/uL (0.0-0.8) 12/11/23 04:27 Baso # (Auto) 0.1 10^3/uL (0.0-0.1) 12/11/23 04:27 Nucleated RBC % (auto) 0 % 12/11/23 04:27 Nucleated RBCs # 0.0 /100WBC 12/11/23 04:27 ESR 8 mm/hr (0-15) 12/10/23 04:15 Sodium 141 mmol/L (136-145) 12/11/23 04:27 Potassium 3.6 mmol/L (3.5-5.1) 12/11/23 04:27 Chloride 106 mmol/L (98-107) 12/11/23 04:27 Carbon Dioxide 24 mmol/L (22-29) 12/11/23 04:27 Anion Gap 14.6 (5-19) 12/11/23 04:27 BUN 13 mg/dL (6-20) 12/11/23 04:27 Creatinine 0.7 mg/dL (0.5-0.9) 12/11/23 04:27 GFR Calculation 86.2 mL/min (90-130) L 12/11/23 04:27 Glucose 98 mg/dL (65-115) 12/11/23 04:27 Estimat Average Glucose 108 12/10/23 04:15 Hemoglobin A1c 5.4 % (4.0-6.0) 12/10/23 04:15 Calculated Osmolality 292 mOsm/kg (285-295) 12/11/23 04:27 Calcium 9.1 mg/dL (8.5-10.5) 12/11/23 04:27 Magnesium 2.4 mg/dL (1.7-2.3) H 12/10/23 04:15 Iron 87 ug/dL (37-145) 12/10/23 12:21 TIBC 300 mcg/dl 12/10/23 12:21 % Saturation 29.0 % (20-50) 12/10/23 12:21 Unsat Iron Binding 213 ug/dL (112-347) 12/10/23 12:21 Ferritin 42 ng/mL (15-150) 12/10/23 12:21 C-Reactive Protein 3.0 mg/L (0.0-4.9) 12/10/23 04:15 Triglycerides 138 mg/dL (0-150) 12/10/23 04:15 Cholesterol 202 mg/dL (0-200) H 12/10/23 04:15 LDL Cholesterol, Calc 121 mg/dL (50-129) 12/10/23 04:15 HDL Cholesterol 53 mg/dL (60-100) L 12/10/23 04:15 LDL/HDL Ratio 2.28 RATIO (0.00-3.22) 12/10/23 04:15 Cholesterol/HDL Ratio 3.81 mg/dL (0.0-4.40) 12/10/23 04:15 Homocysteine 13.99 umol/l (0-15) 12/10/23 12:21 TSH 1.49 uIU/mL (0.27-4.20) 12/10/23 12:21 Urine Color Yellow (Yellow) 12/10/23 20:42 Urine Appearance Clear (CLEAR) 12/10/23 20:42 Urine pH 6.5 (5-7) 12/10/23 20:42 Ur Specific [place] 1.013 (1.005-1.030) 12/10/23 20:42 Urine Protein Negative (Negative) 12/10/23 20:42 Urine Glucose (UA) Negative (Normal) 12/10/23 20:42 Urine Ketones Negative (Negative) 12/10/23 20:42 Urine Blood Negative (Negative) 12/10/23 20:42 Urine Nitrate Negative (Negative) 12/10/23 20:42 Urine Bilirubin Negative (Negative) 12/10/23 20:42 Urine Urobilinogen 0.2 mg/dL (Negative) 12/10/23 20:42 Ur Leukocyte Esterase Negative (Negative) 12/10/23 20:42 Urine RBC 0-2 /hpf (0-2) 12/10/23 20:42 Urine WBC 0-5 /hpf (0-5) 12/10/23 20:42 Ur Squamous Epith Cells 0-5 /hpf (0-5) 12/10/23 20:42 Amorphous Sediment Not Reportable 12/10/23 20:42 Urine Bacteria None seen /hpf (NONE) 12/10/23 20:42 Hyaline Casts 0-4 /lpf H 12/10/23 20:42 Coronavirus (PCR) Negative (Negative) 12/09/23 23:15 Influenza A (PCR) Negative (Negative) 12/09/23 23:15 Influenza Type B (PCR) Negative (Negative) 12/09/23 23:15 RSV (PCR) Negative (Negative) 12/09/23 23:15 Vitals Last Vital Signs Temp 97.3 F L 12/11/23 07:52 Pulse 57 L 12/11/23 07:52 Resp 16 12/11/23 04:00 BP 130/85 12/11/23 07:52 Pulse Ox 93 12/11/23 07:52 O2 Del Method Room Air 12/11/23 07:52 Discharge Plan Discharge Patient Disposition: Home Condition: Stable Prescriptions: New hydroxyurea 500 mg Capsule 500 mg PO Q12H 30 Days Qty: 60 0RF Continued Multivitamin Women 50 Plus 8 mg iron-400 mcg-50 mcg Tablet 1 tab PO DAILY aspirin 81 mg tablet,delayed release (DR/EC) 81 mg PO DAILY Qty: 30 0RF clopidogrel 75 mg tablet 75 mg PO DAILY Qty: 30 0RF atorvastatin 40 mg tablet 40 mg PO DAILY Qty: 30 0RF acetaminophen 500 mg Tablet 1,000 mg PO Q6H PRN (Reason: Pain) Discharge Orders: Discharge Order (Routine); Ordered 12/11/23 Ordered By: Dayne Palm Other Ambulatory Orders: MR angio head wo con [id number] (Routine) Timeframe: 2 Weeks Facility: [facility] - Location: Radiology [facility] Ordered By: Dayne Palm MR head wo con* [id number] (Routine) Timeframe: 2 Weeks Facility: [facility] - Location: Radiology [facility] Ordered By: Dayne Palm MCT/Event Monitor 30 Days (Routine) Timeframe: 1 Day Facility: [facility] - Location: Radiology Ordered By: Dayne Palm Referrals: Elena Vaz MD [Physician] - 1 week Wilian Jones MD [Physician] - 4-7 days (We have notified your physician's clinic of the need for a follow-up appointment to be scheduled. If you have not heard from them within the next 2 business days, please call them directly. This may not be the provider that your appointment is scheduled with and you need to keep your appointment with Dr. Robles in April if you want to establish with him.) Carmine Estevez M.D [Physician] - 1 month (EVENT MONITOR AND BLOOD PRESSURE ) Hakeem Ramos MD [Hospitalist] - 1 week Ignacio Bay MD [Physician] - 1 month (THYROID NODULE) Discharge Diet: Cardiac Discharge Activity: Resume usual activity Patient Instructions: Opioid Safety, Pain Management Activity Restrictions/Additional Instructions: - If you have recurrent strokelike symptoms please call [phone] ? Please follow-up with Dr. Ramos next week ? Please follow-up with Dr. Vaz in the next 2 weeks for MRA/MRI -Please take aspirin, statin, Plavix, as prescribed -Please take hydroxyurea as prescribed Discharge Attestations Time Spent in Discharge Care*: greater than 30 min Quality Metrics Clinical Quality Measures [ Cerebrovascular Accident { Contraindication to Antithrombotic: None; antithrombotic prescribed; Contraindication to Anticoagulation: Overlap treatment not indicated; Contraindication to Statin: None; Statin prescribed;}. No reported AMI, CVA or VTE this stay] Coding Level of Care Code Acute Code for Chg Fwd Diagnoses Polycythemia vera D45
[2023-12-11] MEDS: sodium chloride 0.9% 250 ML IV (15:22)
[2023-12-13 09:36] LABS: THYROID PEROXIDASE ANTIBODIES 20 IU/mL (<9)
[2023-12-13 13:40] LABS: COMPLEMENT, TOTAL (CH50) 50 U/mL (31-60)
[2023-12-13 14:04] LABS: COMPLEMENT COMPONENT C3C 151 mg/dL (83-193); COMPLEMENT COMPONENT C4C 43 mg/dL (15-57)
[2023-12-13 14:04] LABS: Beta-2-Microglobulin 2.55 mg/L (< OR = 2.51)
[2023-12-13 14:29] LABS: CARDIOLIPIN AB (IGA) <2.0 APL-U/mL; CARDIOLIPIN AB (IGG) <2.0 GPL-U/mL; CARDIOLIPIN AB (IGM) <2.0 MPL-U/mL
[2023-12-13 15:11] LABS: ANA SCREEN, IFA NEGATIVE (NEGATIVE)
[2023-12-13 15:34] LABS: PROTEIN, TOTAL 6.1 g/dL (6.1-8.1)
[2023-12-13 15:34] LABS: CENTROMERE B ANTIBODY <1.0 NEG AI (<1.0 NEG); JO-1 ANTIBODY <1.0 NEG AI (<1.0 NEG); RNP ANTIBODY <1.0 NEG AI (<1.0 NEG); SCL-70 ANTIBODY <1.0 NEG AI (<1.0 NEG); SJOGREN'S ANTIBODY (SS-A) <1.0 NEG AI (<1.0 NEG); SM ANTIBODY <1.0 NEG AI (<1.0 NEG); SS-B <1.0 NEG AI (<1.0 NEG)
[2023-12-13 22:05] LABS: PROTEIN S, ACTIVITY 65 % normal (60-140)
== END 2023-12-11 16:36 | disposition home or self-care (01) | DRG 66 ==
LOC: ER 18:48 → MEDSURG 20:03
PROVIDERS: Internal Medicine; Admitting Provider Family Medicine; Emergency Provider Family Medicine; Visit Provider Family Medicine
DX: I63.89 Other cerebral infarction (principal); I10 Essential (primary) hypertension; E04.1 Nontoxic single thyroid nodule; H53.8 Other visual disturbances; R53.1 Weakness; I77.9 Disorder of arteries and arterioles, unspecified; D45 Polycythemia vera; R16.1 Splenomegaly, not elsewhere classified; Z79.82 Long term (current) use of aspirin; Z79.899 Other long term (current) drug therapy; Z82.3 Family history of stroke; Z83.2 Family history of diseases of the blood and blood-forming organs and certain disorders involving the immune mechanism
CPT/HCPCS: 0241U; 36415; 70496; 70498; 71250; 72125; 74177; 80048; 80061; 81001; 81241; 81270; 81279; 82232; 82668; 82728; 83036; 83090; 83516; 83540; 83550; 83735; 83883; 84155; 84165; 84443; 85025; 85210; 85303; 85306; 85651; 86140; 86146; 86147; 86160; 86162; 86235; 86255; 86334; 86376; 92523; 92610; 96372; 97116; 97161; 97166; 99195; 99285; C8929; J1650; J7050; J7120; J8999

== ENCOUNTER 2023-12-23 12:00 | Outpatient (CLI) | payer OTHER, SELFPAY ==
--- NOTE | 2023-12-23 12:00 | MM_ITS ---
WS: [id number] SCREENING DIGITAL TOMOSYNTHESIS MAMMOGRAM WITH CAD HISTORY: Screening COMPARISON: 11/25/2012 Bilateral CC and MLO with tomosynthesis views submitted. Synthetic mammography reviewed. Computer aid ed detection analyzed. Breast composition: There are scattered areas of fibroglandular density. No suspicious masses, microc alcifications or architectural distortion. MM/MM scr BI tomosynthesis [id number] IMPRESSION: BI-RADS: 1 - Negative. FOLLOW UP: 1 Year Follow-up
== END 2023-12-23 12:01 | disposition home or self-care (01) ==
PROVIDERS: PCP Family Medicine; Visit Provider Family Medicine
DX: Z12.31 Encounter for screening mammogram for malignant neoplasm of breast (principal); R92.323 Mammographic fibroglandular density, bilateral breasts
CPT/HCPCS: 77063; 77067

== ENCOUNTER 2024-01-12 15:00 | Oncology outpatient (recurring) (ONCR) | payer OTHER, SELFPAY ==
[2023-12-16 11:11] LABS: Basophils # 0.1 10^3/uL (0.0-0.1); Basophils % 1.4 %; Eosinophils # 0.3 10^3/uL (0.0-0.8); Eosinophils % 2.6 %; Hematocrit 51.8 % (36-47); Lymphocytes # 1.3 10^3/uL (0.8-4.8); Lymphocytes % 13.5 %; Mean Corpuscular HGB Conc 31.9 g/dL (30-55); Mean Corpuscular Hemoglobin 27.1 pg (27-33); Mean Corpuscular Volume 85.2 fl (85-98); Mean Platelet Volume 9.1 fL (7.4-10.4); Monocytes # 0.6 10^3/uL (0.2-0.9); Monocytes % 6.4 %; Neutrophils # 7.14 10^3/uL (1.8-7.7); Neutrophils % 75.6 %; Nucleated Red Blood Cells % 0 %; Platelet Count 860 10^3/cmm (157-399); Red Blood Count 6.08 10^6/uL (3.85-5.65); Red Cell Distribution Width 15.5 % (12.1-15.1); White Blood Count 9.46 10^3/uL (3.29-11.43)
[2023-12-22 13:20] LABS: Basophils # 0.1 10^3/uL (0.0-0.1); Basophils % 1.4 %; Eosinophils # 0.2 10^3/uL (0.0-0.8); Hematocrit 55.8 % (36-47); Lymphocytes # 0.9 10^3/uL (0.8-4.8); Lymphocytes % 11.3 %; Mean Corpuscular HGB Conc 31.9 g/dL (30-55); Mean Corpuscular Hemoglobin 27.6 pg (27-33); Mean Corpuscular Volume 86.5 fl (85-98); Monocytes # 0.5 10^3/uL (0.2-0.9); Monocytes % 5.4 %; Neutrophils # 6.63 10^3/uL (1.8-7.7); Neutrophils % 79.5 %; Nucleated Red Blood Cells % 0 %; Platelet Count 754 10^3/cmm (157-399); Red Blood Count 6.45 10^6/uL (3.85-5.65); Red Cell Distribution Width 17.2 % (12.1-15.1); White Blood Count 8.34 10^3/uL (3.29-11.43)
[2023-12-22 13:27] LABS: Alanine Aminotransferase 30 U/L (0-33); Albumin Level 4.2 g/dL (3.5-5.2); Alkaline Phosphatase 104 U/L (35-105); Aspartate Amino Transferase 24 U/L (0-32); Blood Urea Nitrogen 12 mg/dL (6-20); Calcium 9.5 mg/dL (8.5-10.5); Carbon Dioxide 28 mmol/L (22-29); Chloride 101 mmol/L (98-107); Globulin 2.7 g/dL (1.3-4.6); Glomerular Filtration Rate 73.9 mL/min (90-130); Glucose 102 mg/dL (65-115); Osmolality Calculated 282 mOsm/kg (285-295); Sodium 136 mmol/L (136-145); Total Bilirubin 0.5 mg/dL (0.15-1.2); Total Protein 6.9 g/dL (6.6-8.7); Uric Acid 5.8 mg/dL (2.4-5.7)
[2023-12-22 13:34] LABS: Anion Gap 11.2 (5-19); Lactate Dehydrogenase 203 U/L (135-214); Potassium 4.2 mmol/L (3.5-5.1)
[2023-12-22 15:19] VITALS: BP 138/92; PULSE 80; RESP 16; TEMP 36.9; O2SAT 97
[2023-12-29 13:59] LABS: Basophils # 0.1 10^3/uL (0.0-0.1); Basophils % 1.4 %; Eosinophils # 0.2 10^3/uL (0.0-0.8); Eosinophils % 2.4 %; Hematocrit 48.7 % (36-47); Lymphocytes # 0.9 10^3/uL (0.8-4.8); Lymphocytes % 13.8 %; Mean Corpuscular HGB Conc 31.6 g/dL (30-55); Mean Corpuscular Hemoglobin 27.6 pg (27-33); Mean Corpuscular Volume 87.3 fl (85-98); Mean Platelet Volume 8.7 fL (7.4-10.4); Monocytes # 0.5 10^3/uL (0.2-0.9); Monocytes % 7.1 %; Neutrophils # 4.77 10^3/uL (1.8-7.7); Neutrophils % 74.8 %; Nucleated Red Blood Cells % 0 %; Platelet Count 576 10^3/cmm (157-399); Red Blood Count 5.58 10^6/uL (3.85-5.65); Red Cell Distribution Width 17.3 % (12.1-15.1); White Blood Count 6.37 10^3/uL (3.29-11.43)
[2024-01-05 13:52] LABS: Basophils # 0.1 10^3/uL (0.0-0.1); Basophils % 1.4 %; Eosinophils # 0.1 10^3/uL (0.0-0.8); Eosinophils % 2.5 %; Hematocrit 43.9 % (36-47); Lymphocytes % 17.2 %; Mean Corpuscular HGB Conc 31.7 g/dL (30-55); Mean Corpuscular Hemoglobin 27.6 pg (27-33); Mean Corpuscular Volume 87.3 fl (85-98); Mean Platelet Volume 8.9 fL (7.4-10.4); Monocytes # 0.5 10^3/uL (0.2-0.9); Monocytes % 8.2 %; Neutrophils # 3.93 10^3/uL (1.8-7.7); Neutrophils % 70.3 %; Nucleated Red Blood Cells % 0 %; Platelet Count 477 10^3/cmm (157-399); Red Blood Count 5.03 10^6/uL (3.85-5.65); Red Cell Distribution Width 18.4 % (12.1-15.1); White Blood Count 5.59 10^3/uL (3.29-11.43)
[2024-01-05 14:25] VITALS: BP 120/74; PULSE 78; RESP 17; TEMP 36.3; O2SAT 98
[2024-01-12 13:53] LABS: Basophils # 0.1 10^3/uL (0.0-0.1); Basophils % 1.9 %; Eosinophils # 0.2 10^3/uL (0.0-0.8); Eosinophils % 2.6 %; Hematocrit 42.3 % (36-47); Lymphocytes % 17.2 %; Mean Corpuscular HGB Conc 32.6 g/dL (30-55); Mean Corpuscular Hemoglobin 28.7 pg (27-33); Mean Corpuscular Volume 87.9 fl (85-98); Mean Platelet Volume 8.9 fL (7.4-10.4); Monocytes # 0.5 10^3/uL (0.2-0.9); Monocytes % 8.3 %; Neutrophils % 69.7 %; Nucleated Red Blood Cells % 0 %; Platelet Count 457 10^3/cmm (157-399); Red Blood Count 4.81 10^6/uL (3.85-5.65); Red Cell Distribution Width 18.9 % (12.1-15.1); White Blood Count 5.75 10^3/uL (3.29-11.43)
== END 2024-01-13 23:59 | disposition home or self-care (01) ==
PROVIDERS: Internal Medicine Medical Oncology; PCP Family Medicine; Visit Provider Internal Medicine Hematology & Oncology
DX: D45 Polycythemia vera (principal); Z53.9 Procedure and treatment not carried out, unspecified reason; Z79.899 Other long term (current) drug therapy
CPT/HCPCS: 36415; 80053; 83615; 84550; 85025; 99195

== ENCOUNTER 2024-01-17 07:13 | Outpatient (CLI) | payer OTHER, SELFPAY ==
--- NOTE | 2024-01-17 07:15 | MR_ITS ---
WS: [id number] MRI BRAIN WITHOUT CONTRAST HISTORY: I63.89 - Other cerebral infarction COMPARISON: CT 12/09/2023 TECHNIQUE: Diffusion imaging, multiplanar T1, T2 and FLAIR imaging obtained. Diffusion imaging is positive for a subacute infarct involving the posterior RIGHT frontal lobe, temo etal and parieto-occipital junction. There are a few small susceptibility artifacts associated with t he infarct. Additional cortical laminar necrosis noted at the site of the infarct on the T1 sequence. Additional remote infarct involving the RIGHT caudate is not positive on diffusion. Additional scatt ered T2 and FLAIR signal hyperintensities which are not positive on diffusion in the subcortical whit e matter, bilateral. Prior ischemia RIGHT thalamus. Cerebellum is negative.. Mild cerebral volume loss. No significant hippocampal atrophy. Ventricles and extra-axial spaces are normal. No inferior displacement of cerebellar tonsils. The sella turcica and pituitary gland are unremarkabl e. Smaller caliber RIGHT intracranial ICA which has been previously described. Smaller caliber RIGHT MCA also noted. Paranasal sinuses: Clear. Mastoid air cells: Normal. Calvarium and scalp: Intact. MR/MR head wo con* [id number] IMPRESSION: 1. Subacute, hemorrhagic infarct involving the posterior RIGHT frontal, manager training and development ior RIGHT parietal and parieto-occipital junction. Infarct is predominantly cor tical based. This corresponds to the abnormality seen on the recent CT from 11/14. 2. Additional small lacunar infarcts in the RIGHT caudate and RIGHT thalamus w ith bilateral mild small vessel ischemic disease. 3. Small caliber distal RIGHT intracranial ICA and RIGHT MCA.
--- NOTE | 2024-01-17 08:00 | MR_ITS ---
WS: [email or web address] MRA ANGIOGRAPHY [place] OF [place] HISTORY: I63.89 - Other cerebral infarction COMPARISON: CT angiogram 12/09/2023 TECHNIQUE: 3-D MR angiography is performed of the [place] of [place]. All images are reviewed including source images. Dominant LEFT vertebral artery. Both vertebral arteries are patent. Similar findings were noted on th e CT angiogram. Basilar artery is normal. Posterior cerebral arteries are both patent without signifi cant atherosclerosis. Both posterior communicating arteries are patent with the RIGHT being larger th an the LEFT. No aneurysms. Intracranial RIGHT ICA through the petrous and cavernous portions is smaller than the LEFT. Approachi ng 50% stenosis through the cavernous carotid sinuses and supraclinoid. No high-grade stenosis. RIGHT A1 segment is very small caliber and suspect a high-grade stenosis if not completed occlusion at its junction with the middle cerebral artery. LEFT A1 segment is widely patent. A2 segments and anterior communicating artery are normal. Slightly smaller caliber of the RIGHT middle cerebral artery. Mild paucity of vessels beyond the M2 segments. There is a focal area of occlusion suspected between the R IGHT M2 and M3 segments. LEFT middle cerebral artery normal. Increased signal in the RIGHT posterior parietal lobe cortex corresponds to the area of acute infarct described on 12/09/2023. RIGHT caudate infarct. Additional increased signal adjacent to the RIGHT cau date at the site of a prior infarct. Diffusion imaging was not positive this site. MR/MR angio head wo con [id number] IMPRESSION: 1. Small caliber RIGHT intracranial carotid artery from the petrous through th e supraclinoid segments. Approaching 50% stenosis. Similar to the CTA. 2. Smaller caliber RIGHT MCA with a paucity of vessels beginning in the mid M2 segment and distally. Focal area of nonenhancement involving an M2/M3 branch c losely associated with the area of subacute infarct. 3. Small caliber RIGHT middle cerebral artery but it is patent.
== END 2024-01-17 07:14 | disposition home or self-care (01) ==
LOC: RAD 07:13
PROVIDERS: PCP Family Medicine; Visit Provider Specialist
DX: I63.231 Cerebral infarction due to unspecified occlusion or stenosis of right carotid arteries (principal); I66.01 Occlusion and stenosis of right middle cerebral artery; D75.1 Secondary polycythemia
CPT/HCPCS: 70544; 70551

== ENCOUNTER 2024-01-17 13:00 | Outpatient (CLI) | payer OTHER, SELFPAY ==
--- NOTE | 2024-01-17 17:15 | US_ITS ---
WS: [email or web address] ULTRASOUND THYROID TECHNIQUE: Ultrasound of the thyroid. CLINICAL INFORMATION: Thyroid nodule COMPARISON: None. FINDINGS: Thyroid: Right and left thyroid lobes are normal in size and echotexture. Right thyroid lobe: 4.0 cm x 1.4 cm x 1.9 cm RIGHT inferior thyroid nodule described below. Left thyroid lobe: 4.4 cm x 1.5 cm x 1.6 cm. No left-sided nodules. Isthmus: 0.4 mm. Cervical lymphadenopathy: None. US/US thyroid [id number] IMPRESSION: Solid-appearing RIGHT inferior thyroid nodule measuring 1.1 x 0.8 x 1.3 cm. Recommend 12-month follow-up. TIRADS Category 4: Moderately suspicious (total points = 4) FNA if e1.5 cm Follow if e1 cm (at 1, 2, 3, and 5 years
== END 2024-01-17 13:01 | disposition home or self-care (01) ==
LOC: RAD 13:00
PROVIDERS: PCP Family Medicine; Visit Provider Family Medicine
DX: E04.1 Nontoxic single thyroid nodule (principal)
CPT/HCPCS: 76536

== ENCOUNTER 2024-01-19 12:21 | Oncology outpatient (recurring) (ONCR) | payer OTHER, SELFPAY ==
[2024-01-19 12:42] LABS: Basophils # 0.1 10^3/uL (0.0-0.1); Basophils % 1.8 %; Eosinophils # 0.1 10^3/uL (0.0-0.8); Eosinophils % 2.2 %; Hematocrit 48.6 % (36-47); Lymphocytes # 1.1 10^3/uL (0.8-4.8); Lymphocytes % 20.7 %; Mean Corpuscular HGB Conc 32.5 g/dL (30-55); Mean Corpuscular Volume 89.2 fl (85-98); Mean Platelet Volume 8.6 fL (7.4-10.4); Monocytes # 0.4 10^3/uL (0.2-0.9); Neutrophils # 3.68 10^3/uL (1.8-7.7); Neutrophils % 66.8 %; Nucleated Red Blood Cells % 0 %; Platelet Count 460 10^3/cmm (157-399); Red Blood Count 5.45 10^6/uL (3.85-5.65); Red Cell Distribution Width 19.5 % (12.1-15.1); White Blood Count 5.51 10^3/uL (3.29-11.43)
[2024-01-19 13:03] LABS: Alanine Aminotransferase 38 U/L (0-33); Albumin Level 4.6 g/dL (3.5-5.2); Alkaline Phosphatase 106 U/L (35-105); Anion Gap 13.1 (5-19); Aspartate Amino Transferase 25 U/L (0-32); Blood Urea Nitrogen 9 mg/dL (6-20); Calcium 9.6 mg/dL (8.5-10.5); Carbon Dioxide 28 mmol/L (22-29); Chloride 102 mmol/L (98-107); Creatinine Clr Calc Pharmacy 91.1364; Ferritin 18 ng/mL (15-150); Globulin 1.8 g/dL (1.3-4.6); Glomerular Filtration Rate 73.9 mL/min (90-130); Glucose 95 mg/dL (65-115); Iron 61 ug/dL (37-145); Lactate Dehydrogenase 180 U/L (135-214); Osmolality Calculated 286 mOsm/kg (285-295); Percent Saturation 17.5 % (20-50); Potassium 4.1 mmol/L (3.5-5.1); Sodium 139 mmol/L (136-145); Total Bilirubin 0.5 mg/dL (0.15-1.2); Total Iron Binding Capacity 347 mcg/dl; Total Protein 6.4 g/dL (6.6-8.7); Unsaturated Iron Binding 286 ug/dL (112-347)
[2024-01-26 13:39] LABS: Soluble Transferrin Receptor 2.78 mg/L (0.76-1.76)
== END 2024-02-12 23:59 | disposition home or self-care (01) ==
PROVIDERS: PCP Family Medicine; Visit Provider Internal Medicine Hematology & Oncology
DX: D45 Polycythemia vera
CPT/HCPCS: 36415; 80053; 82728; 83540; 83550; 83615; 84238; 85025; 99195

== ENCOUNTER → 2024-02-07 14:28 | Outpatient (BNVA) | payer OTHER, SELFPAY | PROVIDERS: PCP Family Medicine; Visit Provider Family Medicine | DX: E04.1 Nontoxic single thyroid nodule (principal); E55.9 Vitamin D deficiency, unspecified; E53.8 Deficiency of other specified B group vitamins; Z51.81 Encounter for therapeutic drug level monitoring | CPT/HCPCS: 82306; 82607; 84439; 84481; 85025 ==

== ENCOUNTER 2024-02-16 12:12 | Oncology outpatient (recurring) (ONCR) | payer OTHER, SELFPAY ==
[2024-02-16 13:16] LABS: Basophils # 0.1 10^3/uL (0.0-0.1); Basophils % 1.3 %; Eosinophils # 0.1 10^3/uL (0.0-0.8); Eosinophils % 2.6 %; Hematocrit 46.3 % (36-47); Mean Corpuscular HGB Conc 32.6 g/dL (30-55); Mean Corpuscular Hemoglobin 30.3 pg (27-33); Mean Corpuscular Volume 92.8 fl (85-98); Mean Platelet Volume 8.8 fL (7.4-10.4); Monocytes # 0.3 10^3/uL (0.2-0.9); Monocytes % 6.3 %; Neutrophils # 3.85 10^3/uL (1.8-7.7); Neutrophils % 71.2 %; Nucleated Red Blood Cells % 0 %; Platelet Count 344 10^3/cmm (157-399); Red Blood Count 4.99 10^6/uL (3.85-5.65); Red Cell Distribution Width 18.9 % (12.1-15.1)
[2024-02-16 13:39] LABS: Alanine Aminotransferase 26 U/L (0-33); Albumin Level 4.4 g/dL (3.5-5.2); Alkaline Phosphatase 105 U/L (35-105); Anion Gap 13.8 (5-19); Aspartate Amino Transferase 21 U/L (0-32); Blood Urea Nitrogen 9 mg/dL (6-20); Carbon Dioxide 26 mmol/L (22-29); Chloride 102 mmol/L (98-107); Creatinine Clr Calc Pharmacy 91.1364; Ferritin 24 ng/mL (15-150); Globulin 2.9 g/dL (1.3-4.6); Glomerular Filtration Rate 73.9 mL/min (90-130); Glucose 85 mg/dL (65-115); Iron 101 ug/dL (37-145); Lactate Dehydrogenase 166 U/L (135-214); Osmolality Calculated 284 mOsm/kg (285-295); Percent Saturation 28.2 % (20-50); Potassium 3.8 mmol/L (3.5-5.1); Sodium 138 mmol/L (136-145); Total Bilirubin 0.6 mg/dL (0.15-1.2); Total Iron Binding Capacity 358 mcg/dl; Total Protein 7.3 g/dL (6.6-8.7); Unsaturated Iron Binding 257 ug/dL (112-347)
== END 2024-03-14 23:59 | disposition home or self-care (01) ==
PROVIDERS: Internal Medicine Hematology & Oncology; PCP Family Medicine; Visit Provider Specialist
DX: D45 Polycythemia vera (principal)
CPT/HCPCS: 36415; 80053; 82728; 83540; 83550; 83615; 85025; 99195

== ENCOUNTER 2024-03-20 12:42 | Oncology outpatient (recurring) (ONCR) | payer OTHER, SELFPAY ==
[2024-03-20 12:39] LABS: Mean Corpuscular HGB Conc 33.6 g/dL (30-55); Mean Corpuscular Hemoglobin 32.4 pg (27-33); Mean Corpuscular Volume 96.6 fl (85-98); Mean Platelet Volume 8.8 fL (7.4-10.4); Platelet Count 349 10^3/cmm (157-399); Red Blood Count 4.35 10^6/uL (3.85-5.65); Red Cell Distribution Width 16.3 % (12.1-15.1); White Blood Count 5.68 10^3/uL (3.29-11.43)
[2024-03-20 12:56] LABS: Alanine Aminotransferase 18 U/L (0-33); Albumin Level 4.2 g/dL (3.5-5.2); Alkaline Phosphatase 103 U/L (35-105); Aspartate Amino Transferase 16 U/L (0-32); Blood Urea Nitrogen 10 mg/dL (6-20); Calcium 9.7 mg/dL (8.5-10.5); Carbon Dioxide 25 mmol/L (22-29); Chloride 104 mmol/L (98-107); Creatinine Clr Calc Pharmacy 91.5808; Ferritin 23 ng/mL (15-150); Globulin 2.7 g/dL (1.3-4.6); Glomerular Filtration Rate 73.9 mL/min (90-130); Glucose 92 mg/dL (65-115); Iron 80 ug/dL (37-145); Lactate Dehydrogenase 161 U/L (135-214); Osmolality Calculated 285 mOsm/kg (285-295); Percent Saturation 24.3 % (20-50); Sodium 138 mmol/L (136-145); Total Bilirubin 0.4 mg/dL (0.15-1.2); Total Iron Binding Capacity 328 mcg/dl; Total Protein 6.9 g/dL (6.6-8.7); Unsaturated Iron Binding 248 ug/dL (112-347)
[2024-03-20 13:14] LABS: Total Cells Counted 100 (0-100)
[2024-03-20 13:18] LABS: Absolute Eosinophils 0.1 10^3/cmm (0.0-0.7); Absolute Neutrophil 4.4 10^3/cmm (1.4-6.5); Absolute Segmented Neutrophil 4.4 10/cmm (1.6-7.1); Eosinophils 2 %; Giant Platelets Trace; Lymphocytes 12 %; Lymphocytes Absolute 0.7 10^3/cmm (1.2-3.4); Monocytes Absolute 0.4 10^3/cmm (0.1-0.6); Platelet Estimate Normal (Normal); Segmented Neutrophils 78 %
== END 2024-04-14 23:59 | disposition home or self-care (01) ==
PROVIDERS: Internal Medicine Medical Oncology; PCP Family Medicine; Visit Provider Specialist
DX: Z53.9 Procedure and treatment not carried out, unspecified reason; D45 Polycythemia vera; I63.89 Other cerebral infarction; G47.10 Hypersomnia, unspecified; E04.1 Nontoxic single thyroid nodule
CPT/HCPCS: 36415; 80053; 82728; 83540; 83550; 83615; 85007; 85027

== ENCOUNTER 2024-05-30 12:30 | Oncology outpatient (recurring) (ONCR) | payer OTHER, SELFPAY ==
[2024-05-30 13:00] LABS: Basophils # 0.1 10^3/uL (0.0-0.1); Basophils % 1.3 %; Eosinophils # 0.1 10^3/uL (0.0-0.8); Lymphocytes % 14.9 %; Mean Corpuscular HGB Conc 33.3 g/dL (30-55); Mean Corpuscular Volume 102.1 fl (85-98); Mean Platelet Volume 8.9 fL (7.4-10.4); Monocytes # 0.6 10^3/uL (0.2-0.9); Monocytes % 8.5 %; Neutrophils # 5.04 10^3/uL (1.8-7.7); Neutrophils % 72.9 %; Nucleated Red Blood Cells % 0 %; Platelet Count 419 10^3/cmm (157-399); Red Blood Count 4.21 10^6/uL (3.85-5.65); Red Cell Distribution Width 13.2 % (12.1-15.1); White Blood Count 6.92 10^3/uL (3.29-11.43)
[2024-05-30 13:21] LABS: Alanine Aminotransferase 40 U/L (0-33); Albumin Level 4.3 g/dL (3.5-5.2); Alkaline Phosphatase 132 U/L (35-105); Aspartate Amino Transferase 29 U/L (0-32); Blood Urea Nitrogen 9 mg/dL (6-20); Calcium 9.5 mg/dL (8.5-10.5); Carbon Dioxide 28 mmol/L (22-29); Chloride 103 mmol/L (98-107); Globulin 2.4 g/dL (1.3-4.6); Glomerular Filtration Rate 73.9 mL/min (90-130); Glucose 88 mg/dL (65-115); Osmolality Calculated 288 mOsm/kg (285-295); Sodium 140 mmol/L (136-145); Total Bilirubin 0.6 mg/dL (0.15-1.2); Total Protein 6.7 g/dL (6.6-8.7)
== END 2024-06-12 23:59 | disposition home or self-care (01) ==
PROVIDERS: PCP Family Medicine; Visit Provider Internal Medicine Medical Oncology
DX: D45 Polycythemia vera (principal)
CPT/HCPCS: 36415; 80053; 85025

== ENCOUNTER 2024-07-04 12:01 | Oncology outpatient (recurring) (ONCR) | payer OTHER, SELFPAY ==
[2024-07-04 12:47] LABS: Basophils # 0.1 10^3/uL (0.0-0.1); Basophils % 1.3 %; Eosinophils # 0.1 10^3/uL (0.0-0.8); Eosinophils % 3.1 %; Hematocrit 41.4 % (36-47); Lymphocytes # 0.9 10^3/uL (0.8-4.8); Lymphocytes % 19.4 %; Mean Corpuscular HGB Conc 34.5 g/dL (30-55); Mean Corpuscular Hemoglobin 35.3 pg (27-33); Mean Corpuscular Volume 102.2 fl (85-98); Mean Platelet Volume 9.1 fL (7.4-10.4); Monocytes # 0.4 10^3/uL (0.2-0.9); Monocytes % 8.7 %; Neutrophils # 3.09 10^3/uL (1.8-7.7); Neutrophils % 67.3 %; Nucleated Red Blood Cells % 0 %; Platelet Count 352 10^3/cmm (157-399); Red Blood Count 4.05 10^6/uL (3.85-5.65); Red Cell Distribution Width 13.2 % (12.1-15.1); White Blood Count 4.59 10^3/uL (3.29-11.43)
[2024-07-04 12:52] LABS: Alanine Aminotransferase 31 U/L (0-33); Albumin Level 4.1 g/dL (3.5-5.2); Alkaline Phosphatase 124 U/L (35-105); Anion Gap 13.1 (5-19); Aspartate Amino Transferase 22 U/L (0-32); Blood Urea Nitrogen 10 mg/dL (6-20); Calcium 9.4 mg/dL (8.5-10.5); Carbon Dioxide 26 mmol/L (22-29); Chloride 105 mmol/L (98-107); Globulin 2.6 g/dL (1.3-4.6); Glomerular Filtration Rate 73.9 mL/min (90-130); Glucose 87 mg/dL (65-115); Osmolality Calculated 288 mOsm/kg (285-295); Potassium 4.1 mmol/L (3.5-5.1); Sodium 140 mmol/L (136-145); Total Bilirubin 0.5 mg/dL (0.15-1.2); Total Protein 6.7 g/dL (6.6-8.7)
--- NOTE | 2024-07-04 12:59 | PC.NURSE ---
Pt HGB less than 15. No phlebotomy performed at this time. Pt given results and voiced understanding./lc
== END 2024-07-12 23:59 | disposition home or self-care (01) ==
LOC: ONCMED 12:01
PROVIDERS: Nurse Practitioner Family; PCP Family Medicine; Visit Provider Internal Medicine Medical Oncology
DX: D45 Polycythemia vera (principal)
CPT/HCPCS: 36415; 80053; 85025

== ENCOUNTER 2024-08-01 12:23 | Oncology outpatient (recurring) (ONCR) | payer OTHER, SELFPAY ==
[2024-08-01 13:35] LABS: Basophils # 0.1 10^3/uL (0.0-0.1); Basophils % 1.3 %; Eosinophils # 0.1 10^3/uL (0.0-0.8); Eosinophils % 2.3 %; Hematocrit 42.1 % (36-47); Lymphocytes % 19.8 %; Mean Corpuscular HGB Conc 34.2 g/dL (30-55); Mean Corpuscular Hemoglobin 35.5 pg (27-33); Mean Corpuscular Volume 103.7 fl (85-98); Mean Platelet Volume 9.3 fL (7.4-10.4); Monocytes # 0.6 10^3/uL (0.2-0.9); Monocytes % 10.6 %; Neutrophils # 3.41 10^3/uL (1.8-7.7); Neutrophils % 65.8 %; Nucleated Red Blood Cells % 0 %; Platelet Count 357 10^3/cmm (157-399); Red Blood Count 4.06 10^6/uL (3.85-5.65); White Blood Count 5.19 10^3/uL (3.29-11.43)
== END 2024-08-12 23:59 | disposition home or self-care (01) ==
PROVIDERS: Nurse Practitioner Family; PCP Family Medicine; Visit Provider Internal Medicine Medical Oncology
DX: D45 Polycythemia vera (principal)
CPT/HCPCS: 85025

== ENCOUNTER 2024-09-08 08:08 | Oncology outpatient (recurring) (ONCR) | payer OTHER, SELFPAY ==
--- NOTE | 2024-09-08 08:45 | MR_ITS ---
WS: [email or web address] MRA HEAD TECHNIQUE: Axial 3-D TOF images obtained with axial images and axial, sagittal, and coronal 2-D reformatted images. CLINICAL INFORMATION: I63.9 - Cerebral infarction, unspecified COMPARISON: 01/17/2024 FINDINGS: 3.8 mm aneurysm with posterior inferior projection near the takeoff of the RIGHT ophthalmic artery. Difficult to visualize on the prior MRa due to artifact and location but appears stable. This is best visualized on the sagittal reformatted MRA images. Aneurysm is not discernible on the prior CTA. Dominant distal LEFT vertebral artery. Smaller but patent distal RIGHT vertebral artery. Basilar artery is patent. Normal vascularity to the FO[employer] INSPECTOR territory bilaterally. Distal vessels appear patent. Prior RIGHT MCA territory infarcts. Both ICAs are patent at the skull base. Slightly decreased caliber to the RIGHT ICA at the skull base unchanged from previous. Mild narrowing involving RIGHT petrous and cavernous segments which remain patent. No flow-limiting stenosis. Absent RIGHT A1 segment. RIGHT M1 segment is patent. Decreased vascularity RIGHT MCA territory in the area of prior infarct. This is unchanged in appearance compared to previous. Normal vascularity to the LEFT MCA territory. MR/MR angio head wo con [id number] IMPRESSION: 1. 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 Recommend neurosurgery consultation. Future surveillance should be perfo rmed with MRA as this is not discernible on the prior CTA. 2. Decreased vascularity to the RIGHT MCA territory in the area of prior infar ct. RIGHT M1 segment remains patent. 3. Mild stenosis RIGHT ICA at the skull base and intracranial ICA which remain s patent stable since previous. No flow-limiting. 4. Absent RIGHT A1 segment. 5. No other acute findings.
== END 2024-09-11 23:59 | disposition home or self-care (01) ==
LOC: RAD 08:20 → ONCMED 09-13 13:17
PROVIDERS: PCP Family Medicine; Visit Provider Internal Medicine Medical Oncology
DX: D45 Polycythemia vera (principal); I63.9 Cerebral infarction, unspecified; I63.89 Other cerebral infarction
CPT/HCPCS: 70544

== ENCOUNTER 2024-09-26 12:03 | Oncology outpatient (recurring) (ONCR) | payer OTHER, SELFPAY ==
[2024-09-26 12:26] LABS: Hematocrit 42.8 % (36-47); Hemoglobin 14.60 g/dL (11.27-16.99); Mean Corpuscular HGB Conc 34.1 g/dL (30-55); Mean Corpuscular Hemoglobin 35.0 pg (27-33); Mean Corpuscular Volume 102.6 fl (85-98); Nucleated Red Blood Cells % 0 %; Platelet Count 409 10^3/cmm (157-399); Red Blood Count 4.17 10^6/uL (3.85-5.65); White Blood Count 5.96 10^3/uL (3.29-11.43)
[2024-09-26 13:00] LABS: Alanine Aminotransferase 29 U/L (0-33); Albumin Level 4.2 g/dL (3.5-5.2); Alkaline Phosphatase 113 U/L (35-105); Anion Gap 15.9 (5-19); Aspartate Amino Transferase 23 U/L (0-32); Blood Urea Nitrogen 10 mg/dL (6-20); Calcium 9.6 mg/dL (8.5-10.5); Carbon Dioxide 25 mmol/L (22-29); Chloride 105 mmol/L (98-107); Creatinine Clr Calc Pharmacy 93.3587; Globulin 2.7 g/dL (1.3-4.6); Glucose 87 mg/dL (65-115); Osmolality Calculated 292 mOsm/kg (285-295); Potassium 3.9 mmol/L (3.5-5.1); Sodium 142 mmol/L (136-145); Total Protein 6.9 g/dL (6.6-8.7)
== END 2024-10-12 23:59 | disposition home or self-care (01) ==
PROVIDERS: PCP Family Medicine; Visit Provider Internal Medicine Medical Oncology
DX: D45 Polycythemia vera (principal)
CPT/HCPCS: 36415; 80053; 85025

== ENCOUNTER 2024-11-21 11:39 | Oncology outpatient (recurring) (ONCR) | payer SELFPAY ==
[2024-11-21 11:58] LABS: Hematocrit 40.9 % (36-47); Hemoglobin 14.10 g/dL (11.27-16.99); Mean Corpuscular HGB Conc 34.5 g/dL (30-55); Mean Corpuscular Hemoglobin 36.2 pg (27-33); Mean Corpuscular Volume 104.9 fl (85-98); Nucleated Red Blood Cells % 0 %; Platelet Count 402 10^3/cmm (157-399); Red Blood Count 3.90 10^6/uL (3.85-5.65); White Blood Count 5.96 10^3/uL (3.29-11.43)
[2024-11-21 12:14] LABS: Alanine Aminotransferase 30 U/L (0-33); Albumin Level 4.1 g/dL (3.5-5.2); Alkaline Phosphatase 124 U/L (35-105); Anion Gap 9.9 (5-19); Aspartate Amino Transferase 22 U/L (0-32); Blood Urea Nitrogen 8 mg/dL (6-20); Calcium 9.6 mg/dL (8.5-10.5); Carbon Dioxide 28 mmol/L (22-29); Chloride 106 mmol/L (98-107); Globulin 2.7 g/dL (1.3-4.6); Glucose 91 mg/dL (65-115); Osmolality Calculated 288 mOsm/kg (285-295); Potassium 3.9 mmol/L (3.5-5.1); Sodium 140 mmol/L (136-145); Total Protein 6.8 g/dL (6.6-8.7)
== END 2024-12-12 23:59 | disposition home or self-care (01) ==
PROVIDERS: Nurse Practitioner Family; PCP Family Medicine; Visit Provider Internal Medicine Medical Oncology
DX: D45 Polycythemia vera (principal)
CPT/HCPCS: 36415; 80053; 83615; 85025

== ENCOUNTER → 2024-12-21 07:39 | Outpatient (BNVA) | payer SELFPAY | PROVIDERS: PCP Family Medicine; Visit Provider Family Medicine | DX: Z13.6 Encounter for screening for cardiovascular disorders (principal); E55.9 Vitamin D deficiency, unspecified; E53.8 Deficiency of other specified B group vitamins | CPT/HCPCS: 80061; 82306; 82607 ==

== ENCOUNTER 2025-01-23 11:44 | Oncology outpatient (recurring) (ONCR) | payer BC, SELFPAY ==
[2025-01-23 12:06] LABS: Hematocrit 43.3 % (36-47); Hemoglobin 14.40 g/dL (11.27-16.99); Mean Corpuscular HGB Conc 33.3 g/dL (30-55); Mean Corpuscular Hemoglobin 35.6 pg (27-33); Mean Corpuscular Volume 107.2 fl (85-98); Nucleated Red Blood Cells % 0 %; Platelet Count 467 10^3/cmm (157-399); Red Blood Count 4.04 10^6/uL (3.85-5.65); White Blood Count 6.56 10^3/uL (3.29-11.43)
[2025-01-23 12:26] LABS: Alanine Aminotransferase 48 U/L (0-33); Albumin Level 4.3 g/dL (3.5-5.2); Alkaline Phosphatase 158 U/L (35-105); Anion Gap 14.2 (5-19); Aspartate Amino Transferase 27 U/L (0-32); Blood Urea Nitrogen 11 mg/dL (6-20); Calcium 9.6 mg/dL (8.5-10.5); Carbon Dioxide 26 mmol/L (22-29); Chloride 103 mmol/L (98-107); Globulin 2.8 g/dL (1.3-4.6); Glucose 92 mg/dL (65-115); Osmolality Calculated 287 mOsm/kg (285-295); Potassium 4.2 mmol/L (3.5-5.1); Sodium 139 mmol/L (136-145); Total Protein 7.1 g/dL (6.6-8.7)
== END 2025-02-11 23:59 | disposition home or self-care (01) ==
PROVIDERS: Nurse Practitioner; PCP Family Medicine; Visit Provider Internal Medicine Medical Oncology
DX: D75.1 Secondary polycythemia (principal)
CPT/HCPCS: 36415; 80053; 83615; 85025